=== PATIENT | female | born 1960 | race African-American/Black ===

== ENCOUNTER → 2016-06-09 | Outpatient (CLI) | payer BC, MEDICARE ==
[~2016-06-09] MED LIST: ACETAMINOPHEN-H1 TA2 PO; AMBIEN10 M1 PO; AMBIEN5 MG PO; BUPROPION HYDR100 MG PO; CYMBALTA30 M1 PO; DRISDOL50000 IU PO; HUMULIN 70/30 703 M1 SC; HYDROCODONE BIT1 T11 PO; HYDROMORPHONE2 MG PO; LEVEMIR100 U/ML SC; LEXAPRO20 MG PO; LISINOPRIL20 MG PO; LISINOPRIL40 MG PO; LOPRESSOR50 MG PO; LYRICA75 M1 PO; MAG-OX 400400 MG PO; MAGNESIUM OXID400 MG PO; MAGNESIUM PO; MEDROL DOSEPAK4 MG PO; MEGESTROL ACETAT1 OZ PO; METOPROLOL TART50 M1 PO; METOPROLOL100 MG PO; MORPHINE SULFAT15 MG PO; NORVASC2.5 MG PO; NORVASC5 MG PO; NOVOLOG FLEX100 U/ML SC; OYSTER SHELL CA1 T20 PO; PANTOPRAZOLE SO40 MG PO; PROGRAF1 MG PO; SIMVASTATIN5 MG PO; TRAMADOL HCL50 MG PO; ZITHROMAX250 MG PO; ZOFRAN4 MG PO; ZOLOFT50 MG PO; ZYPREXA2.5 MG PO
== END | disposition home or self-care (01) ==
LOC: US 02:15
DX: Z13.820 Encounter for screening for osteoporosis (principal); E04.2 Nontoxic multinodular goiter

== ENCOUNTER → 2016-10-31 | Outpatient (CLI) | payer BC ==
[2016-10-31 12:32] LABS: HEMOGLOBIN A1c 11.8 % (4.8-5.6)
[2016-10-31 12:50] LABS: THYROID STIM HORMONE (HS) 0.449 uIU/ml (0.358-4.75)
== END | disposition home or self-care (01) ==
LOC: LAB 11:52
PROVIDERS: Internal Medicine Endocrinology, Diabetes & Metabolism
DX: E04.2 Nontoxic multinodular goiter (principal); E11.65 Type 2 diabetes mellitus with hyperglycemia; I10 Essential (primary) hypertension; E55.9 Vitamin D deficiency, unspecified; R20.2 Paresthesia of skin; Z79.4 Long term (current) use of insulin

== ENCOUNTER 2017-02-14 17:10 | Inpatient (IN) | payer BC, MEDICARE ==
[~2017-02-14] VITALS: Ht 163.8 cm; Wt 52.7 kg
--- NOTE | ~2017-02-14 | PR ---
[place], [place] PROGRESS NOTE NAME: KVNG RIVERO [facility] #: [id number] UNIT #: [id number] ROOM: 412 DOCTOR: JARED CHURCHILL MD BIRTHDATE: [birth year] DOS: 02/18/2017 SUBJECTIVE: The patient looks quite sleepy, but does try to wake up ux consultant and answers questions appropriately. She feels better. She wants some regular breakfast this morning. She is able to tolerate food now. OBJECTIVE: VITAL SIGNS: Blood pressure is 137/76, pulse of 80, respirations 16, temperature 98.3. LUNGS: Diminished breath sounds, clear. HEART: Regular. ABDOMEN: Obese, soft, nontender. EXTREMITIES: Without any edema. LABORATORY DATA: Glucose 123, BUN 22, creatinine 3.34, sodium 133, potassium 4.9, chloride 100, bicarbonate 24. WBC count is 14.4, hemoglobin 13.1, hematocrit 39.0. ASSESSMENT AND PLAN: 1. Acute kidney injury, possibly from hypotension resulting in ATN. Increase IV fluid rate and I will discontinue nephrotoxic medicines. The only one she is on lisinopril for right now, we will discontinue it. 2. Type 2 diabetes mellitus, insulin-dependent with hyperosmolar state. Blood sugars are improving. Again, ADA diet started. 3. Diabetic gastroparesis, on Reglan. The patient is no longer having any nausea, any emesis. 4. Liver transplant from history of alcoholic liver disease, on immunosuppressants. 5. Major depression, moderate on medications. Megace was added to improve appetite. Will get a renal consult before the patient is discharged because of continued rise in creatinine, even on the IV fluids. ADDENDUM SUBJECTIVE: The patient became hypotensive. The patient was to walk to the bathroom, she became dizzy and lightheaded and almost fell. Nurses did bring her back to bed. She does not have any complaints of chest pains or palpitations. She is slightly dizzy. OBJECTIVE: VITAL SIGNS: Her blood pressure was 100/50, pulse of 76, respirations 14. LUNGS: Clear. HEART: Regular. ASSESSMENT AND PLAN: Dizziness and near syncope, most likely from hypotension. I had already made arrangements to increase the IV fluids. They did speak to the nursing staff to give wide open IV fluids 1 bag and then reduce the IV rate to 100 mL an hour. She already has ATN resulting from this hypotension and the lisinopril will be discontinued for right now. [place], [place] PROGRESS NOTE NAME: KVNG RIVERO UNIT #: [id number] ROOM: [facility] DOCTOR: JARED CHURCHILL MD BIRTHDATE: [birth year] JARED CHURCHILL MD CM:PNTRANS [phone] JARED CHURCHILL MD 02/20/17 0629 interface
--- NOTE | ~2017-02-14 | PR ---
[place], [place] PROGRESS NOTE NAME: KVNG RVIERO [facility] #: [id number] UNIT #: [id number] ROOM: 412 DOCTOR: JARED CHURCHILL MD BIRTHDATE: [birth year] DOS: 02/16/2017 SUBJECTIVE: The patient has no complaints this morning other than some minimal abdominal discomfort. OBJECTIVE: VITAL SIGNS: Graphic trend shows blood pressure 108/66, pulse is 60s, respirations 16, temperature 97.9. LUNGS: Clear. HEART: Regular. ABDOMEN: Soft, nontender. EXTREMITIES: Without any edema. ASSESSMENT AND PLAN: 1. Type 2 diabetes mellitus, insulin-dependent, poorly controlled with hyperosmolar state, which is resolved now. 2. Major depression, moderate, recurrent. Appetite is extremely poor. Consider to add Remeron. 3. Abdominal pain most likely from acute gastritis. She underwent an endoscopy in July of this year by Dr. Strauss, which showed benign esophageal stricture and gastritis. Dilation was performed. We will ask Dr. Strauss for an opinion again, because the patient is not eating much food. JARED CHURCHILL MD CM:PNTRANS [phone] 1 JARED CHURCHILL MD 02/17/17 0131 interface
--- NOTE | ~2017-02-14 | WRIGHTHP ---
[place], [place] PATIENT HISTORY AND PHYSICAL EXAM NAME: KVNG RIVERO [facility] #: [id number] UNIT #: [id number] ROOM: [facility] DOCTOR: KEE LUCIANO MD BIRTHDATE: [birth year] DOS: 02/14/2017 HISTORY OF PRESENT ILLNESS: The patient is a 57-year-old female with a past medical history of: 1. Uncontrolled type 2 diabetes mellitus. The patient has a history of chest pain with negative stress test and cardiac stress test in the past. 2. Benign essential hypertension. 3. History of esophageal stricture status post dilatation in the past. 4. History of alcoholic liver cirrhosis and liver transplant. 5. Chronic lower back pains. 6. Major depression, recurrent, moderate. 7. Chronic primary insomnia. 8. Vitamin D deficiency. The patient presented to the [facility] Emergency Department with extremely elevated blood sugars above 800. The patient said she is not feeling well for about 10 days and she chronically has some nausea and diarrhea, but worse for about a day and a half. The patient's hemoglobin A1c was found to be 14.5 and blood sugar at 1015 along with elevated BUN and creatinine. The patient was recommended for admission for the management to the ICU. The patient was found to be hyponatremic with sodium of 119 and hypokalemic with potassium 3.1 with elevation of troponin level 2.131. After admission, the patient was treated with hydration with normal saline and later on with hypertonic saline, extra potassium supplements, intravenous insulin and her blood sugars have improved and ranging between 114-157 now. The patient is starting to feel much better, but she is still complaining of some nausea and significant diarrhea. No complaints of chest pains. No nausea or diaphoresis. No other GI or urinary symptoms. REVIEW OF SYSTEMS: GASTROINTESTINAL: Some nausea and acute diarrhea. CARDIOVASCULAR: No chest pains or palpitations. LUNGS: No increased shortness of breath or wheezing. FAMILY HISTORY: Noncontributory. HOME MEDICATIONS: The patient takes lisinopril, insulin, mirtazapine, pravastatin, metoprolol, tacrolimus, Xanax, oxycodone and zolpidem. ALLERGIES: No known drug allergies. PHYSICAL EXAMINATION: GENERAL: Alert and oriented x 3, weak looking, but in no visible distress. VITAL SIGNS: Blood pressure 105/66, heart rate 88 beats per minute, breathing 15 times per minute, temperature of 98.2 degrees Fahrenheit. HEENT AND NECK: Extraocular movements are intact. Sclerae are anicteric. Oral mucosa is moist and clean. No obvious facial weakness. Neck is supple without any lymphadenopathy. No thyromegaly. No JVD. No carotid arterial bruits. LUNGS: Clear to auscultation. No wheezing. No rhonchi. CARDIOVASCULAR SYSTEM: Heart rate is regular in rate and rhythm. S1 and S2 [place], [place] PATIENT HISTORY AND PHYSICAL EXAM NAME: KVNG RIVERO UNIT #: [id number] ROOM: [facility] DOCTOR: KEE LUCIANO MD BIRTHDATE: [birth year] normally audible. No significant murmur or any other abnormal cardiac sounds. ABDOMEN: Soft, nontender. No obvious organomegaly. Bowel sounds are present. No obvious herniation. EXTREMITIES: Without significant cyanosis or edema. Warm to touch. CENTRAL NERVOUS SYSTEM: Alert and oriented x 3. Cranial nerves II-XII are intact. Speech is normal. The patient is able to move all extremities. Normal muscle strength. Deep tendon reflexes are equal on both sides. Plantars were downgoing. IMPRESSION: 1. The patient is very poor compliance with treatment and followup. 2. Acute and severe hyperglycemia, treated with IV insulin and improved. 3. Acute dehydration from severe hyperglycemia, improved with treatment. 4. Hypokalemia from diarrhea, treated with extra potassium supplements. 5. Severe hyponatremia, treated with normal saline. The patient's sodium level has improved now. She is on hypertonic saline. 6. Uncontrolled type 2 diabetes mellitus with severe hyperglycemia from noncompliance with treatment. 7. Acute over chronic kidney disease, improved with hydration. The patient with acute tubular necrosis. The patient's BUN and creatinine has improved with hydration from 2.19 admission and is now down 1.54. 8. Uncontrolled type 2 diabetes mellitus from noncompliance with diet and treatment. The patient's hemoglobin A1c is 14.5. 9. Acute nausea and diarrhea from uncertain etiology. We will watch and follow closely and hydrate the patient, also replace electrolytes and check her stool for C. diff and cultures. KEE LUCIANO MD CM:HISPHYS:PATIENT HISTORY AND PHYSICAL EXAMINATION [phone] [id number] KEE LUCIANO MD 02/15/17 1852 interface
--- NOTE | ~2017-02-14 | PR ---
[place], [place] PROGRESS NOTE NAME: KVNG RIVERO [facility] #: [id number] UNIT #: [id number] ROOM: 412 DOCTOR: JARED CHURCHILL MD BIRTHDATE: [birth year] DOS: SUBJECTIVE: She is curled up in her bed this morning, states that she is too weak to get out of bed and walk to the bathroom or walk around in the hallways. OBJECTIVE: VITAL SIGNS: Blood pressure is 104/60, pulse of 75, respirations 18, temperature 97.5. LUNGS: Diminished breath sounds. HEART: Regular. ABDOMEN: Soft. EXTREMITIES: Without any edema. Endoscopy was done yesterday, which showed significant diabetic gastroparesis for which Reglan was started. LABORATORY DATA: This morning shows glucose of 174, BUN 19, creatinine 2.77, sodium 138, potassium 6.3, chloride 103, bicarbonate 20. Urine culture shows no bacterial growth. White blood cell count 10.4, hemoglobin 12.8, platelets 127. ASSESSMENT AND PLAN: 1. Hyperosmolar state, which is better with the blood sugars below 200s. 2. Adult failure to thrive. I suggested the patient go to rehab, but she refused, but I will ask PT, OT and social service to evaluate her for possible placement. 3. Gastroparesis diabetic, on Reglan. 4. Major depression, moderate, recurrent. Already on multiple medications. We will also add Megace to improve the appetite. JARED CHURCHILL MD CM:PNTRANS 3 1229 JARED CHURCHILL MD 02/17/17 1228 interface
--- NOTE | ~2017-02-14 | PR ---
[place], [place] PROGRESS NOTE NAME: KVNG RIVERO [facility] #: [id number] UNIT #: [id number] ROOM: 412 DOCTOR: CORINNE GARCIA MD BIRTHDATE: [birth year] DOS: 02/19/2017 SUBJECTIVE: The patient was seen at her bedside today, 02/19/2017 for followup of her elevated troponin level. She is a 57-year-old woman with a history of cirrhosis and liver transplantation with post-transplant type 2 diabetes mellitus and hypertension. She presented to the hospital on this occasion with severe hyperglycemia and poorly controlled diabetes. She was noted to have an acute exacerbation of chronic renal insufficiency. Initially, her creatinine improved with fluids, but then began to rise again. Creatinine levels are now 3.38 as of this morning. The patient did undergo upper endoscopy for dysphagia and was found to have gastritis and esophageal ulcers. A cardiac assessment in April 2016 showed normal left ventricular systolic function and no evidence for ischemia. During the current hospitalization, her troponin was elevated at 0.131 on admission, subsequently it has fallen to 0.076. Treatment of her gastritis has improved her chest discomfort. PHYSICAL EXAMINATION: VITAL SIGNS: Today, her pulse is 110 and regular, blood pressure is 111/75. She is afebrile. NECK: Supple. She has no jugular distention. Carotids are full without bruits. LUNGS: Respirations are unlabored. Her chest is clear to auscultation and percussion. She has no presacral edema. HEART: Has a regular rhythm with a soft fourth heart sound, but no third heart sound. ABDOMEN: Soft and normoactive. EXTREMITIES: Showed no edema. LABORATORY DATA: Her hemoglobin is 13.1 with a white count of 14,400 and platelet count 135,000. Sodium is 132, potassium 5.1, BUN 25 and creatinine 3.38. Her monitor shows sinus tachycardia. IMPRESSION: 1. Atypical chest pain, most likely due to gastritis and esophageal ulcerations. 2. Acute on chronic renal insufficiency. 3. History of alcoholic cirrhosis, status post liver transplant. 4. History of hypertension. 5. Tachycardia, possibly due to beta adrian withdrawal. PLAN: I will reinstitute a low dose of beta adrian and continue her monitor. She is being evaluated by Nephrology as well. Her troponin levels have fallen and I believe that her myocardial injury was due to demand ischemia rather than an acute coronary event. We will continue to follow her intermittently and we thank Dr. Pepper for asking our advice regarding her care. [place], [place] PROGRESS NOTE NAME: KVNG RIVERO [place] UNIT #: [id number] ROOM: [facility] DOCTOR: CORINNE GARCIA MD BIRTHDATE: [birth year] CORINNE GARCIA MD CM:PNTRANS [phone] 50 CORINNE GARCIA MD 02/19/17 2350 interface
--- NOTE | ~2017-02-14 | PR ---
[place], [place] PROGRESS NOTE NAME: KVNG RIVERO [facility] #: [id number] UNIT #: [id number] ROOM: 412 DOCTOR: JARED CHURCHILL MD BIRTHDATE: [birth year] DOS: SUBJECTIVE: The patient is feeling good, has no complaints today. I appreciate Dr. Vidal's input. OBJECTIVE: VITAL SIGNS: Blood pressure is 111/75, pulse of 109, respirations 18, temperature 98.2. LUNGS: Clear. HEART: Regular. ABDOMEN: Soft. EXTREMITIES: Without any edema. ASSESSMENT AND PLAN: 1. Acute kidney injury from acute tubular necrosis from hypotension. Blood pressure medicines are on hold. Blood pressures still on the low side. Basic metabolic panel pending. 2. Type 2 diabetes mellitus with hyperosmolar state. Blood sugar is controlled. The patient is starting to eat better. The labs do look okay. I plan to discharge her to home today. 3. Chronic elevation of troponin, most likely from renal insufficiency. JARED CHURCHILL MD CM:PNTRANS 4 19 JARED CHURCHILL MD 02/19/171918 interface
--- NOTE | ~2017-02-14 | PR ---
[place], [place] PROGRESS NOTE NAME: KVNG RIVERO [facility] #: [id number] UNIT #: [id number] ROOM: 412 DOCTOR: CORINNE GARCIA MD BIRTHDATE: [birth year] DOS: 02/17/2017 SUBJECTIVE: The patient was seen at her bedside today 02/17/2017 for evaluation of an elevated troponin level. She is a 57-year-old woman with a history of alcoholic liver cirrhosis and liver transplant along with type 2 diabetes mellitus and hypertension. She presented to the hospital on this occasion with hyperglycemia and sugar over 800. Her hemoglobin A1c was 14.5. She was noted to have acute on chronic renal failure. Baseline creatinine appears to be about 1.5, but on admission, she was 2.09 and it has risen to 3.12 today. Her troponin level was elevated at 0.131 on admission and upon repeat it was 0.115. It has been mildly elevated in this range in the past, but not recently. She has undergone cardiac evaluation including echocardiography and stress testing in April 2016. Ejection fraction on her stress test, which was done 05/19/2016 was 83%. She had no evidence for ischemia and the study was felt to be low risk. During this hospitalization, she has complained of dysphagia. An upper endoscopy done by Dr. Strauss on 02/16/2017 showed gastritis with esophageal ulcers. PHYSICAL EXAMINATION: VITAL SIGNS: Today, her pulse is 69 and regular, blood pressure is 103/71. She is afebrile. NECK: Supple. She has no jugular distention. Carotids are full. LUNGS: Respirations are unlabored. Her chest is clear. HEART: Has a regular rhythm with a soft S4 gallop, but no S3. ABDOMEN: Soft and normoactive. EXTREMITIES: Showed no edema. LABORATORY DATA: Review of the monitor shows sinus rhythm. IMPRESSION: 1. Atypical chest pain. Upper endoscopy does show gastritis and esophageal ulcerations. 2. Acute on chronic renal insufficiency. 3. History of alcoholic cirrhosis, status post liver transplant. PLAN: It is most likely that her troponin elevation is related to her renal insufficiency rather than due to an acute coronary event. Literature would suggest that this does predict a more serious prognosis for her other illnesses, but this is not truly a primary cardiac event. I will repeat a troponin level in the morning to help confirm this. For now, supportive care is all that is indicated from a cardiac standpoint. We will continue to follow her intermittently and we thank Dr. Pepper for asking our advice regarding her care. [place], [place] PROGRESS NOTE NAME: KVNG RIVERO [place] UNIT #: [id number] ROOM: [facility] DOCTOR: CORINNE GARCIA MD BIRTHDATE: [birth year] CORINNE GARCIA MD CM:PNTRANS [id number] CORINNE GARCIA MD 02/18/17 1539 interface
--- NOTE | ~2017-02-14 | O ---
[place], [place] OPERATIVE NOTE NAME: KVNG RIVERO UNIT #: [id number] ROOM: 412 DOCTOR: TIMOTEO DIEZPATRICIA BIRTHDATE: [birth year] DOS: GASTROENDOSCOPIC REPORT INDICATION: The patient has presented with nausea, dysphagia, vomiting. The patient has had frequent bowel movements. The patient's glucose was greater than 1000 and hemoglobin A1c of 14.5. She was managed for hyperglycemia and her latest blood sugar improved to 128, creatinine improved to 1.94 and sodium corrected to 133. Urine culture, no bacteria. CBC differential, stable white blood cell of 8, H and H of 11 and 34. She was severely presenting with sodium of 119 with pseudohyponatremia. PAST MEDICAL HISTORY: Associated with diabetes mellitus, hypertension, cirrhotic liver, shortness of breath chronically, chronic lower back pain as well. Major depression. PAST SURGICAL HISTORY: Cholecystectomy, , liver transplant 20 years ago. SOCIAL HISTORY: Smoker, nonalcohol consumer. FAMILY HISTORY: Noncontributory. ALLERGIES: No known medication. MEDICATIONS: List reviewed. PROCEDURE: Today's procedure part of investigation is panendoscopy plus aspiration of 1000 mL retained fluid in the gastric pouch plus biopsy of the antrum plus photographic series of diffuse esophageal ulcerations and reflux ulcers. PREMEDICATION: Versed and Diprivan. SCOPE: Olympus forward-viewing gastroscope Q10 video. REPORT: After putting the patient in the left lateral position and after application of lubricant to the scope, the scope was introduced. Thereafter, under direct visualization, I advanced through the length of the esophagus, which is expressing diffuse ulceration secondary to reflux. Gastric pouch was entered. 1000 mL gastric juices were suctioned out. This is secondary to diabetic gastroparesis. Duodenal patency was assured, antral biopsy obtained, gastric pouch emptied. The patient extubated and tolerated procedure well. IMPRESSION: Diffuse esophageal ulceration secondary to reflux, retention of greater than 1000 mL of gastric juices status post suctioning. PLAN AND DISCUSSION: Protonix 40 mg IV b.i.d., Reglan 10 mg b.i.d. IV, Carafate 1 gram q. 6 hours, slurry to be sipped at the bedside. We are going to keep her n.p.o. tonight until her medication takes over and will try clear liquid [place], [place] OPERATIVE NOTE NAME: KVNG RIVERO UNIT #: [id number] ROOM: 412 DOCTOR: PATRICIA MAHMOOD MD BIRTHDATE: [birth year] tomorrow and clinical reassessment. FINAL IMPRESSION: Gastroparesis secondary to diabetic gastroparesis and noncompliant patient. Thank you very much indeed. PATRICIA MAHMOOD MD CM:OPRECORD:OPERATIVE NOTE [id number] PATRICIA MAHMOOD MD 02/17/17 0005 interface
--- NOTE | ~2017-02-14 | DS ---
[place], [place] DISCHARGE SUMMARY NAME: KVNG RIVERO UNIT #: [id number] ROOM: 412 DOCTOR: JARED CHURCHILL MD BIRTHDATE: [birth year] DOS: HOSPITAL COURSE: This patient is very well known to us. The patient had routine blood work ordered by Dr. Hawkins, her medical technologist prn. Her blood sugar was in the above , so the patient was called to come into the Emergency Room. She was evaluated and was admitted with hyperosmolar state. Please see H and P for Dr. Pepper for details also. The patient was admitted to ICU, was managed by him. The patient's blood sugars continued to improve, was later [place] [facility] The patient was found to be hypotensive with evidence of acute kidney injury and antihypertensives were discontinued, begin IV hydration. Potassium supplementation was discontinued. A consultation with Dr. Noe was obtained. The patient also developed some abdominal pain. Dr. Strauss was consulted, endoscopy was performed and showed significant gastroparesis and a lot of residual gastric juices about 1000 mL was noted with evidence of gastritis. This was all suctioned out. The patient has had chronic elevation in troponin, possibly from the renal insufficiency. Cardiology consultation was obtained with Dr. Hines. No further workup was ordered because she had recent stress test and echocardiogram in April of last year, which were within normal limits. The patient is stable this morning, her appetite is improved. I have ordered a basic metabolic on this morning. I do not have the results yet. If that shows improvement in the kidney functions, the plan is to discharge her to home today. DISCHARGE MEDICATIONS: Will be Megace 400 mg twice a day, Reglan 5 b.i.d., Protonix 40 daily, Prograf 3 grams twice a day, vitamin D 50,000 units once a week, Ambien 5 at bedtime p.r.n., simvastatin 5 daily, oxycodone 5 b.i.d., duloxetine 30 daily, Remeron 30 at bedtime. Metoprolol, amlodipine, lisinopril, Elavil have been discontinued, will be restarted at a later date. [place], [place] DISCHARGE SUMMARY NAME: KVNG RIVERO UNIT #: [id number] ROOM: 412 DOCTOR: JARED CHURCHILL MD BIRTHDATE: [birth year] JARED CHURCHILL MD CM:EARLE 7 7 JARED CHURCHILL MD 02/19/17 09 interface
[2017-02-14 13:50] LABS: CREATININE 2.09 mg/dL (0.55-1.02)
[2017-02-14 13:55] LABS: THYROID STIM HORMONE (HS) 1.1 uIU/ml (0.358-4.75)
[2017-02-14 14:34] LABS: VITAMIN D, 25-HYDROXY 18.4 ng/mL (30-100)
[2017-02-14 17:17] VITALS: BP 129/73
[2017-02-14 18:08] LABS: BASO % 0.4 % (0.0-1.0); EOS # 0.1 10*3/uL (0.0-0.4); EOS % 1.6 % (1.0-4.0); HEMOGLOBIN 11.4 g/dl (12.0-16.0); LYMPH # 1.1 10*3/uL (1.3-4.4); LYMPH % 19.6 % (27.0-41.0); MEAN CELL VOLUME 88.2 fl (81.0-99.0); MEAN CORPUSCULAR HGB 30.5 pg (27.0-31.0); MEAN CORPUSCULAR HGB CONC 34.5 g/dl (33.0-37.0); MONO # 0.4 10*3/uL (0.1-1.0); MONO % 6.1 % (3.0-9.0); NEUT # 4.1 10*3/uL (2.3-7.9); NEUT % 71.8 % (47.0-73.0); PLATELET COUNT AUTOMATED 99 10*3/uL (130-400); RED BLOOD COUNT 3.74 10*6/uL (4.10-5.10); RED CELL DISTRI WIDTH 12.3 % (0-14.5); WHITE BLOOD COUNT 5.7 10*3/uL (4.8-10.8)
[2017-02-14 18:15] LABS: BILIRUBIN NEGATIVE (NEGATIVE); BLOOD TRACE-LYSED (NEGATIVE); CLARITY CLEAR (CLEAR); COLOR YELLOW (YELLOW); GLUCOSE 3+ (NEGATIVE); KETONE NEGATIVE (NEGATIVE); LEUKO ESTERASE NEGATIVE (NEGATIVE); NITRITE NEGATIVE (NEGATIVE); PH 5.5 (5.0-9.0); SPECIFIC GRAVITY <= 1.005 (1.005-1.030); UROBILINOGEN 0.2 E.U./dl (0.2-1.0)
[2017-02-14 18:26] LABS: ABG BASE EXCESS 3.7 mmol/L (-2.0-2.0); ABG HCO3 27.5 mmol/l (22-26); ABG O2 SATURATION 98.3 % (95-97); ARTERIAL BLOOD GAS PCO2 41.3 mmHg (35-45); ARTERIAL BLOOD GAS PH 7.442 (7.35-7.45); ARTERIAL BLOOD GAS PO2 97.4 mmHg (80-90)
[2017-02-14 18:27] LABS: ALBUMIN 2.3 gm/dl (3.1-4.5); CREATININE 2.19 mg/dL (0.55-1.02); POTASSIUM 3.1 mmol/L (3.5-5.1); TOTAL PROTEIN 5.8 gm/dL (6.4-8.2)
[2017-02-14 18:32] LABS: TROPONIN I 0.131 ng/ml (<0.045)
[2017-02-14 18:45] LABS: BACTERIA 2+
[2017-02-14 19:12] VITALS: BP 183/99
[2017-02-14 20:07] VITALS: BP 160/97
[2017-02-14 22:16] LABS: CREATININE 1.92 mg/dL (0.55-1.02); POTASSIUM 3.8 mmol/L (3.5-5.1)
[2017-02-15] VITALS: BP 142/80
[2017-02-15 04:00] VITALS: BP 122/71
[2017-02-15 06:39] LABS: CREATININE 1.54 mg/dL (0.55-1.02); POTASSIUM 3.2 mmol/L (3.5-5.1)
[2017-02-15 08:00] VITALS: BP 101/62
[2017-02-15] MEDS ORDERED: CYMBALTA30 MG PO (08:57)
[2017-02-15] MEDS ORDERED: OXYCODONE HCL5 M1 PO (08:57)
[2017-02-15] MEDS ORDERED: REMERON30 M1 PO (08:58)
[2017-02-15] MEDS ORDERED: AMITRIPTYLINE10 MG PO (08:58)
[2017-02-15 12:00] VITALS: BP 105/66
[2017-02-15 12:08] LABS: CREATININE 1.72 mg/dL (0.55-1.02); POTASSIUM 3.8 mmol/L (3.5-5.1)
[2017-02-15 16:00] VITALS: BP 98/61
[2017-02-15 18:24] LABS: CREATININE 1.93 mg/dL (0.55-1.02); POTASSIUM 4.3 mmol/L (3.5-5.1)
[2017-02-15 20:00] VITALS: BP 112/70
[2017-02-16] VITALS (8 sets, daily range): BP systolic 91–147; BP diastolic 58–84
[2017-02-16 04:17] LABS: BASO % 0.5 % (0.0-1.0); EOS # 0.5 10*3/uL (0.0-0.4); HEMATOCRIT 31.4 % (37.0-47.0); LYMPH # 3.2 10*3/uL (1.3-4.4); LYMPH % 40.4 % (27.0-41.0); MEAN CELL VOLUME 87.5 fl (81.0-99.0); MEAN CORPUSCULAR HGB 30.6 pg (27.0-31.0); MEAN PLATELET VOLUME 11.7 fl (9.6-12.3); MONO # 0.6 10*3/uL (0.1-1.0); MONO % 7.2 % (3.0-9.0); NEUT # 3.7 10*3/uL (2.3-7.9); NEUT % 45.8 % (47.0-73.0); PLATELET COUNT AUTOMATED 107 10*3/uL (130-400); RED BLOOD COUNT 3.59 10*6/uL (4.10-5.10); RED CELL DISTRI WIDTH 12.8 % (0-14.5)
[2017-02-16 04:32] LABS: CREATININE 1.94 mg/dL (0.55-1.02); POTASSIUM 4.7 mmol/L (3.5-5.1)
[2017-02-17] VITALS: BP 90/54
[2017-02-17 04:47] VITALS: BP 104/60
[2017-02-17 05:47] LABS: CREATININE 2.77 mg/dL (0.55-1.02)
[2017-02-17 05:49] LABS: POTASSIUM 6.3 mmol/L (3.5-5.1)
[2017-02-17 06:34] LABS: HEMATOCRIT 36.5 % (37.0-47.0); HEMOGLOBIN 12.8 g/dl (12.0-16.0); MEAN CELL VOLUME 87.3 fl (81.0-99.0); MEAN CORPUSCULAR HGB 30.6 pg (27.0-31.0); MEAN CORPUSCULAR HGB CONC 35.1 g/dl (33.0-37.0); MEAN PLATELET VOLUME 13.8 fl (9.6-12.3); NUCLEATED RED BLOOD CELL 0.1 10*3/uL (0.0-0.0); NUCLEATED RED BLOOD CELL 1.2 % (0.0-0.0); PLATELET COUNT AUTOMATED 127 10*3/uL (130-400); RED BLOOD COUNT 4.18 10*6/uL (4.10-5.10); RED CELL DISTRI WIDTH 12.8 % (0-14.5); WHITE BLOOD COUNT 10.4 10*3/uL (4.8-10.8)
[2017-02-17 07:09] LABS: BASOPHILS 1 % (0-1); PLATELET SUFFICIENCY LOW (NORMAL); TOTAL CELLS COUNTED 100 #CELLS
[2017-02-17 08:00] VITALS: BP 96/46
[2017-02-17 10:17] LABS: CREATININE 3.12 mg/dL (0.55-1.02)
[2017-02-17 12:00] VITALS: BP 97/68
[2017-02-17 16:00] VITALS: BP 103/71
[2017-02-17 20:00] VITALS: BP 97/60
[2017-02-18] VITALS: BP 137/76
[2017-02-18 05:59] LABS: BASO % 0.2 % (0.0-1.0); EOS # 0.1 10*3/uL (0.0-0.4); EOS % 0.8 % (1.0-4.0); HEMOGLOBIN 13.1 g/dl (12.0-16.0); LYMPH # 3.1 10*3/uL (1.3-4.4); LYMPH % 21.7 % (27.0-41.0); MEAN CELL VOLUME 87.4 fl (81.0-99.0); MEAN CORPUSCULAR HGB 29.4 pg (27.0-31.0); MEAN CORPUSCULAR HGB CONC 33.6 g/dl (33.0-37.0); MEAN PLATELET VOLUME 11.1 fl (9.6-12.3); MONO # 1.2 10*3/uL (0.1-1.0); MONO % 8.6 % (3.0-9.0); NEUT # 9.8 10*3/uL (2.3-7.9); NEUT % 68.3 % (47.0-73.0); PLATELET COUNT AUTOMATED 135 10*3/uL (130-400); RED BLOOD COUNT 4.46 10*6/uL (4.10-5.10); RED CELL DISTRI WIDTH 13.2 % (0-14.5); WHITE BLOOD COUNT 14.4 10*3/uL (4.8-10.8)
[2017-02-18 06:03] LABS: CREATININE 3.34 mg/dL (0.55-1.02); POTASSIUM 4.9 mmol/L (3.5-5.1)
[2017-02-18 06:07] LABS: TROPONIN I 0.076 ng/ml (<0.045)
[2017-02-18 08:20] VITALS: BP 140/90
[2017-02-18 12:00] VITALS: BP 122/84
[2017-02-18 16:00] VITALS: BP 117/74
[2017-02-18 20:00] VITALS: BP 127/79
[2017-02-19] VITALS: BP 126/74
[2017-02-19 08:00] VITALS: BP 111/75
[2017-02-19] MEDS ORDERED: PROTONIX40 MG PO (08:13)
[2017-02-19] MEDS ORDERED: REGLAN5 MG PO (08:13)
[2017-02-19] MEDS ORDERED: MEGACE 40400 MG/10 PO (08:28)
[2017-02-19 08:54] LABS: CREATININE 3.38 mg/dL (0.55-1.02); POTASSIUM 5.1 mmol/L (3.5-5.1)
== END 2017-02-19 12:20 | disposition home or self-care (01) | DRG 637 ==
LOC: EDSTATUS 17:10 → ED 17:11 → ICCU 18:49 → EDHOLD 18:49 → ICCU 19:51 → 4E 02-15 20:32
PROVIDERS: Internal Medicine; Internal Medicine Endocrinology, Diabetes & Metabolism; Internal Medicine Nephrology; Physician Assistant; ADMIT Internal Medicine
PROC: 0DB68ZX Excision of Stomach, Via Natural or Artificial Opening Endoscopic, Diagnostic (ICD-10-PCS; principal; 2017-02-16)
DX: E11.00 Type 2 diabetes mellitus with hyperosmolarity without nonketotic hyperglycemic-hyperosmolar coma (NKHHC) (principal); N17.0 Acute kidney failure with tubular necrosis; E87.2 Acidosis; I95.9 Hypotension, unspecified; Z94.4 Liver transplant status; E11.649 Type 2 diabetes mellitus with hypoglycemia without coma; E11.22 Type 2 diabetes mellitus with diabetic chronic kidney disease; K25.9 Gastric ulcer, unspecified as acute or chronic, without hemorrhage or perforation; E87.1 Hypo-osmolality and hyponatremia; F33.8 Other recurrent depressive disorders; K22.10 Ulcer of esophagus without bleeding; K31.84 Gastroparesis; E11.43 Type 2 diabetes mellitus with diabetic autonomic (poly)neuropathy; Z90.49 Acquired absence of other specified parts of digestive tract; G93.2 Benign intracranial hypertension; G89.29 Other chronic pain; M54.5 Low back pain; F32.9 Major depressive disorder, single episode, unspecified; E86.0 Dehydration; E87.6 Hypokalemia; Z91.19 Patient's noncompliance with other medical treatment and regimen; E11.65 Type 2 diabetes mellitus with hyperglycemia; M75.100 Unspecified rotator cuff tear or rupture of unspecified shoulder, not specified as traumatic; J40 Bronchitis, not specified as acute or chronic; I12.9 Hypertensive chronic kidney disease with stage 1 through stage 4 chronic kidney disease, or unspecified chronic kidney disease; E78.5 Hyperlipidemia, unspecified; Z80.9 Family history of malignant neoplasm, unspecified; N18.3 Chronic kidney disease, stage 3 (moderate); E86.1 Hypovolemia; R62.7 Adult failure to thrive; K31.89 Other diseases of stomach and duodenum; Z79.4 Long term (current) use of insulin; K29.00 Acute gastritis without bleeding

== ENCOUNTER 2017-02-20 22:02 | Inpatient (IN) | payer BC, MEDICARE ==
[~2017-02-20] VITALS: Ht 163.8 cm; Wt 65.5 kg
--- NOTE | ~2017-02-20 | PR ---
[place], [place] PROGRESS NOTE [id number] UNIT #: [id number] ROOM: 525 DOCTOR: KEE LUCIANO MD BIRTHDATE: [birth year] DOS: 02/23/2017 SUBJECTIVE: The patient complaining of weakness and some constipation. OBJECTIVE: VITAL SIGNS: Blood pressure 142/76, heart rate 93 beats per minute, breathing 18 times per minute, temperature 98 degrees Fahrenheit. GENERAL APPEARANCE: The patient is alert and oriented x 3, in no visible distress. HEENT AND NECK: Exam within normal limits. CARDIOVASCULAR SYSTEM: Heart rate is regular in rate and rhythm. S1 and S2 normally audible. LUNGS: Clear to auscultation. ABDOMEN: Soft, nontender. No obvious organomegaly. Bowel sounds are present. EXTREMITIES: Without significant cyanosis or edema. NEUROLOGIC: Generalized weakness. IMPRESSION: 1. The patient has acute renal failure. BUN and creatinine 32 and 3.06. The patient was recommended to go to transplant center in ____ to get treated for acute renal failure, which is thought to be secondary to her antirejection medication, tacrolimus, but the patient refused. Tacrolimus level was found to be elevated and the dosage has been cut back by the corrosion engineer. 2. The patient on hydration with IV fluids for acute kidney injury from tubular necrosis. 3. Type 2 diabetes mellitus, insulin requiring, uncontrolled. Blood sugars are being monitored and treated. 4. Adult failure to thrive. The patient to work with Physical Therapy. 5. History of liver transplant and chronic rejection, followed at [facility]. KEE LUCIANO MD CM:PNTRANS 23 50 KEE LUCIANO MD 02/23/172250 interface
--- NOTE | ~2017-02-20 | PR ---
[place], [place] [facility]GRESS [id number] UN[facility] #: [id number] ROOM: 525 DOCTOR: JARED CHURCHILL MD BIRTHDATE: [birth year] DOS: SUBJECTIVE: The patient is doing fairly well, does not have any new complaints. She did have a good breakfast, walked with physical therapy. OBJECTIVE: VITAL SIGNS: Graphic trend shows a pressure 140/90, pulse of 91, respirations 20, temperature 98.3. LUNGS: Diminished breath sounds. No wheezes, rales or rhonchi heard. HEART: Regular. ABDOMEN: Obese, soft, nontender. EXTREMITIES: Without any edema. ASSESSMENT AND PLAN: 1. Acute kidney injury from hypotension and acute tubular necrosis. Kidney functions have normalized. She has not had any blood work since 7. Since [facility], blood will be drawn there today. 2. History of type 2 diabetes mellitus, insulin-dependent, poorly controlled. Blood sugars are stable here. 3. Adult failure to thrive for placement to [facility] for therapy. 4. History of liver transplant. Medications readjusted and repeat Prograf level was ordered to make sure that the current dosage is the right dose for the patient. The patient is stable. [facility] is accepted and insurance had certified, so we will discharge today. JARED CHURCHILL MD CM:PNTRANS [id number] JARED CHURCHILL MD 02/26/172203 interface
--- NOTE | ~2017-02-20 | PR ---
[place], [place] PROGRESS NOTE NAME: [facility] [id number] UNIT #: [id number] ROOM: 525 DOCTOR: KEE LUCIANO MD BIRTHDATE: [birth year] DOS: 02/24/2017 SUBJECTIVE: The patient is feeling much better. OBJECTIVE: VITAL SIGNS: Blood pressure 110/68, heart rate 100 beats per minute, breathing 18 times per minute, temperature 98.3 degrees Fahrenheit. GENERAL APPEARANCE: The patient is alert and oriented x 3, in no visible distress. HEENT AND NECK: Exam within normal limits. CARDIOVASCULAR SYSTEM: Heart rate is regular in rate and rhythm. S1 and S2 normally audible. LUNGS: Clear to auscultation. ABDOMEN: Soft, nontender. No obvious organomegaly. Bowel sounds are present. EXTREMITIES: Without significant cyanosis or edema. IMPRESSION: 1. The patient with acute over chronic kidney failure considered to be secondary to tacrolimus. The antirejection medications was held back for 1 day because the levels were high and Nephrology are following. Kidney function is better today. Creatinine has improved to 2.87. The patient refused to be transferred to a transplant center which was recommended by Nephrology. 2. Type 2 diabetes mellitus, insulin requiring with uncontrolled blood sugars at home, apparently due to noncompliance. Blood sugars at the hospital are staying much better, ranging from almost 70-150 mostly. 3. History of liver transplant and chronic rejection, followed at [facility] transplant Center. KEE LUCIANO MD CM:PNTRANS [id number] KEE LUCIANO MD 02/24/172227 interface
--- NOTE | ~2017-02-20 | PR ---
[place], [place] PROGRESS NOTE NAME: KVNG RIVERO [facility] #: [id number] UNIT #: [id number] ROOM: 525 DOCTOR: MUSTAPHA DIEZ,KEE Regalado BIRTHDATE: [birth year] DOS: 02/25/2017 SUBJECTIVE: The patient is feeling better. Swelling in her legs is improving. Kidney function is also improving. The patient's acute over chronic kidney disease is improving with treatment. The patient with liver transplant, on antirejection medicine tacrolimus, which dose has been decreased. Anemia of chronic disease. Benign essential hypertension, with controlled blood pressures with treatment. Type 2 diabetes mellitus. Blood sugars being monitored and controlled. The patient has uncontrolled diabetes at home from poor compliance with diet. KEE LUCIANO MD CM:HARPREET [id number] KEE LUCIANO MD 02/25/172226 interface
--- NOTE | ~2017-02-20 | PR ---
[place], [place] PROGRESS NOTE [id number] UNIT #: [id number] ROOM: 525 DOCTOR: JARED CHURCHILL MD BIRTHDATE: [birth year] DOS: SUBJECTIVE: The patient has no complaints this morning. OBJECTIVE: VITAL SIGNS: Graphic trend shows blood pressure 116/64, pulse of 70, respirations 18, afebrile. LUNGS: Clear. HEART: Regular. ABDOMEN: Obese, soft, nontender. EXTREMITIES: Without any edema. LABORATORY DATA: Shows WBC count of 6.4, hemoglobin 10.7, hematocrit 31.6. Comprehensive: Glucose 78, BUN 37, creatinine 2.84. Electrolytes were normal. SGOT 94, SGPT 82, protein 5.1, bilirubin 0.6, alkaline phosphatase 486. ASSESSMENT AND PLAN: 1. Acute kidney injury from acute tubular necrosis from hypotension. Kidney function seems to be back to baseline. 2. History of liver transplant with chronic rejection. Liver enzymes today are at her baseline, so no new changes made. We are still waiting for the ____ level to come back to readjust medications. The dosage was already lowered once this admission. 3. Type 2 diabetes mellitus, poorly controlled with extreme noncompliance. The patient's blood sugar is 80 this morning. 4. Adult failure to thrive, to go to [facility] for PT, OT today. JARED CHURCHILL MD CM:PNTRANS [id number] JARED CHURCHILL MD 02/27/17 1133 interface
--- NOTE | ~2017-02-20 | PR ---
[place], [place] PROGRESS NOTE NAME: KVNG RIVERO UNIT #: [id number] ROOM: 525 DOCTOR: SON MAHER MD BIRTHDATE: [birth year] DOS: 02/24/2017 NEPHROLOGY FOLLOWUP NOTE SUBJECTIVE: The patient was seen and examined. She is awake and alert. She states she is feeling a little bit better. She denied any chest pains. She did state she ate a little bit more today. PHYSICAL EXAMINATION: VITAL SIGNS: Temperature is afebrile, pulse 100, respirations 18, blood pressure 110/68. HEENT: Shows no JVD. Mucous membranes were somewhat dry. LUNGS: Clear. No crackles. HEART: Normal S1, S2. She was somewhat tachycardic. No rub. ABDOMEN: Soft, nontender. There was no organomegaly. EXTREMITIES: Had trace edema. SKIN: Showed no rash. LABORATORY DATA: Hemoglobin 11.5, white count of 7.8, platelets of 137. Sodium 140, potassium 4.5, CO2 of 21, BUN 32, creatinine 2.87, calcium is 8.1. Her recent tacrolimus level reported as ____ from a few days ago. IMPRESSION: 1. Acute on chronic kidney disease. The patient's renal function is improving. Likely this is related to prerenal factors. Fluids can continue for now. Once she is tolerating better oral intake, fluids can be discontinued. 2. Hypertension. Her blood pressure is actually on the lower side. Medications can continue at this point. Hold if systolic blood pressure is less than 100. 3. Anemia. Follow H and H. Her hemoglobin is stable. 4. Status post orthotopic liver transplant. The patient's tacrolimus has been decreased to 2 mg twice a day. Her recent elevated level is not clear if this truly was accurate. She reports to me she has been on a steady dose for quite some time. A repeat level needs to be checked which will be ordered. [place], [place] PROGRESS NOTE NAME: KVNG RIVERO UNIT #: [id number] ROOM: 525 DOCTOR: SON MAHER MD BIRTHDATE: [birth year] SON MAHER MD CM:HERMELINDOTRANS [phone] SON MAHER MD 02/24/17 2240 interface
--- NOTE | ~2017-02-20 | PR ---
[place], [place] [facility]GRESS NOTE [id number] #: [id number] ROOM: 525 DOCTOR: JARED HCURCHILL MD BIRTHDATE: [birth year] DOS: SUBJECTIVE: The patient states that she feels good and does not have any complaints. OBJECTIVE: VITAL SIGNS: Blood pressure is 136/92, pulse of 100, respirations 20, temperature 98.0. LUNGS: Clear. HEART: Regular. ABDOMEN: Obese, soft, nontender. EXTREMITIES: Without any edema. LABORATORY DATA: Shows some improvement in the BUN and creatinine. WBC 7.9, hemoglobin 11.2, hematocrit 33.6, platelets 149. BMP: Glucose 69, BUN 29, creatinine 3.50. AST 37, ALT 34, alkaline phosphatase 283, protein 5.2. ASSESSMENT AND PLAN: 1. Acute kidney injury from acute tubular necrosis, which is improving. 2. Benign hypertension. Blood pressure is starting to go up. I will add a low dose of Norvasc. 3. History of liver transplant with chronic rejection. Liver enzymes stable. 4. Adult failure to thrive with protein calorie malnutrition. The patient is encouraged to eat better. A consultation of Social service and PT, OT has been obtained for placement. JARED CHURCHILL MD CM:PNTRANS [phone] JARED CHURCHILL MD 02/22/17 1210 interface
--- NOTE | ~2017-02-20 | DS ---
[place], [place] DISCHARGE SUMMARY [id number] #: [id number] ROOM: 525 DOCTOR: JARED CHURCHILL MD BIRTHDATE: [birth year] DOS: 02/26/2017 HOSPITAL COURSE: This patient had routine blood work on the and her creatinine had gone up to 4.3. She appeared to be in acute kidney injury. The patient was advised to come in to the Emergency Room where she was evaluated and was admitted for acute kidney injury. The patient was placed on IV fluids. Her antihypertensive was already discontinued during the last hospitalization. Blood pressures did start going up and a low dose of Norvasc was restarted. Blood sugars have been very well controlled here. The patient overall has major depression and therefore does not take care of herself well at home and she does not eat right or take her medications ____ and does not like to follow up in the office either. She was admitted recently to the hospital and discharged on for hyperosmolar state. At that time her Prograf level was ordered. This has come back pretty high and the dosage of the medicine has been reduced. Dr. Cesar did see the patient during the hospitalization along with PT, OT and Social Service and patient has agreed to go to a rehab center this time, insurance has approved, so the plan is to discharge her to [facility] today to follow up as an outpatient. The patient's diet is ADA 1800. Blood sugars to be checked twice daily. DISCHARGE MEDICATIONS: Amlodipine 5 daily, tacrolimus 2 mg twice a day, vitamin D 50,000 units once a week, 70/30 insulin 14 units twice a day, oxycodone 5 b.i.d., metoclopramide 5 b.i.d. p.r.n. for nausea, Remeron 30 at bedtime, Cymbalta 30 daily, simvastatin 5 daily. JARED CHURCHILL MD CM:DISCHARG [id number] JARED CHURCHILL MD 02/26/17 1627 interface
--- NOTE | ~2017-02-20 | WRIGHTHP ---
[place], [place] PATIENT HISTORY AND PHYSICAL EXAM NAME: KVNG RIVERO [facility] #: [id number] UNIT #: [id number] ROOM: 525 DOCTOR: JARED CHURCHILL MD BIRTHDATE: [birth year] DOS: 02/21/2017 HISTORY OF PRESENT ILLNESS: This patient is very well known to us. She is 57-year-old. The patient had routine blood work in the office and was found to have acute renal failure and she was called in to get admitted to the hospital. The patient denies having any complaints of chest pains or palpitations. She has been dizzy and lightheaded. Her blood sugar reading was 430 on blood work in the ER yesterday, but her creatinine had jumped up to 4.3, so she was asked to come in to the ER. I spoke to Dr. Roberts about admitting the patient with acute kidney injury. The patient this morning does not have any complaints; does not have any complaints of dizziness, lightheadedness. She was very recently admitted to the hospital with hyperosmolar state from poorly controlled diabetes. She also had acute kidney injury from ATN from hypotension and her antihypertensives were discontinued and the patient was given IV fluids and her creatinine was around 3.1 when she was discharged from the hospital. The patient does not take her medications properly either. PAST MEDICAL HISTORY: Significant for: 1. History of alcoholic liver disease. She underwent a liver transplant years ago with chronic rejection. 2. Type 2 diabetes mellitus, insulin-dependent, poorly controlled. 3. Chronic low back pain. 4. Fibromyalgia. 5. Major depression, moderate, recurrent. 6. ATN from hypotension resulting in acute renal failure. 7. Chronic kidney disease. 8. Diabetic nephropathy. 9. Gastroparesis, diabetic. MEDICATIONS: She is currently on oxycodone 5 b.i.d., Ambien 5 at bedtime, Cymbalta 30 daily, Remeron 30 daily, ____ daily, Prograf 3 mg twice a day, insulin 70/30 14 units twice a day, Reglan 5 b.i.d., vitamin D 50,000 units once a week. Her antihypertensives Norvasc, Lopressor and lisinopril are discontinued. SOCIAL HISTORY: Smokes about half to one pack of cigarettes a day. Denies using any alcohol now. PHYSICAL EXAMINATION: GENERAL: The patient is awake and alert and oriented. VITAL SIGNS: Blood pressure is 122/78, pulse of 84, respirations 16, temperature 98.6. LUNGS: Diminished breath sounds, clear. HEART: Regular. ABDOMEN: Obese, soft, nontender. EXTREMITIES: Without any edema. LABORATORY DATA: WBC count is 5.9, hemoglobin 11.2. Comprehensive: Glucose 641, BUN 31, creatinine 4.18, sodium 132, potassium 4.8, chloride 100, bicarbonate 21. [place], [place] PATIENT HISTORY AND PHYSICAL EXAM NAME: KVNG RIVERO UNIT #: [id number] ROOM: [facility] DOCTOR: JARED CHURCHILL MD BIRTHDATE: [birth year] ASSESSMENT AND PLAN: 1. Acute kidney injury from acute tubular necrosis. We will start her IV fluid. Renal re-consultation has been obtained. A recent renal ultrasound was negative. 2. Type 2 diabetes mellitus, insulin-dependent, poorly controlled. 3. Hyperglycemia. Continue coverage scale. 4. Adult failure to thrive. PT/OT to be consulted and possible placement for short term rehabilitation to a rehab center. Social Service will be consulted. 5. History of renal transplant with chronic rejection, followed by [facility] Transplant Clinic, continue Prograf. JARED CHURCHILL MD CM:HISPHYS:PATIENT HISTORY AND PHYSICAL EXAMINATION [phone] JARED CHURCHILL MD 02/21/172137 interface
[~2017-02-20 22:02] MED LIST changes: +AMITRIPTYLINE10 MG PO; +CYMBALTA30 MG PO; +MEGACE 40400 MG/10 PO; +OXYCODONE HCL5 M1 PO; +PROTONIX40 MG PO; +REGLAN5 MG PO; +REMERON30 M1 PO
[2017-02-20 22:11] VITALS: BP 152/88
[2017-02-20 22:55] LABS: BASO % 0.2 % (0.0-1.0); EOS # 0.1 10*3/uL (0.0-0.4); EOS % 0.8 % (1.0-4.0); HEMATOCRIT 33.5 % (37.0-47.0); HEMOGLOBIN 11.2 g/dl (12.0-16.0); LYMPH # 1.3 10*3/uL (1.3-4.4); LYMPH % 21.1 % (27.0-41.0); MEAN CELL VOLUME 89.1 fl (81.0-99.0); MEAN CORPUSCULAR HGB 29.8 pg (27.0-31.0); MEAN CORPUSCULAR HGB CONC 33.4 g/dl (33.0-37.0); MONO # 0.6 10*3/uL (0.1-1.0); MONO % 10.8 % (3.0-9.0); NEUT # 3.9 10*3/uL (2.3-7.9); NEUT % 66.6 % (47.0-73.0); PLATELET COUNT AUTOMATED 122 10*3/uL (130-400); RED BLOOD COUNT 3.76 10*6/uL (4.10-5.10); RED CELL DISTRI WIDTH 13.4 % (0-14.5); WHITE BLOOD COUNT 5.9 10*3/uL (4.8-10.8)
[2017-02-20 23:14] LABS: ALBUMIN 2.3 gm/dl (3.1-4.5); CREATININE 4.18 mg/dL (0.55-1.02); POTASSIUM 4.8 mmol/L (3.5-5.1); TOTAL PROTEIN 5.8 gm/dL (6.4-8.2)
[2017-02-21 00:03] VITALS: BP 141/74
[2017-02-21 00:40] VITALS: BP 148/91
--- NOTE | 2017-02-21 00:40 | NUR ---
A 57, admitted to 5E, under the services of JARED Marin MD with a diagnosis of acute kidney injury (nontramatic). Chief complaint is weak dizzy, felt like she was going to fall but was home and able to help her.pt. said Dr. Cline called her and told her to come to hospital because of abnormal labs. pt. states she has been retaining urine today denies n/v,said she had some SOB with exertion, pt. denies chest pain. Patient arrived via stretcher from ER. Monitor applied. Initial assessment completed. Vital signs taken and recorded. JARED MARIN MD notified of admission to the unit. Orders received. See assessment for past medical history, medications and allergies. Patient and/or family oriented to unit. [facility] visitation policy reviewed. Clothing/patient valuable form completed. CHANTE BERRY
--- NOTE | 2017-02-21 01:12 | NUR ---
PT. NOT SURE OF HOME MEDICATIONS AND WILL NEED HER TO BRING A LIST IN TOMORROW.
--- NOTE | 2017-02-21 03:09 | NUR ---
PT SAID ABD PAIN HAS SUBSIDED SOME BUT IS STILL IN PAIN RATED "6" OXY GIVEN PER ORDER FOR PAIN.
--- NOTE | 2017-02-21 04:00 | NUR ---
PT. SLEEPING. OXY EFFECTIVE FOR PAIN.
--- NOTE | 2017-02-21 07:00 | NUR ---
CALLED DR. RODGERS AND NOTIFIED ANSWERING SERVICE OF CONSULT.
[2017-02-21 07:19] LABS: CREATININE 3.99 mg/dL (0.55-1.02); POTASSIUM 4.6 mmol/L (3.5-5.1)
[2017-02-21 08:00] VITALS: BP 128/78
--- NOTE | 2017-02-21 08:00 | NUR ---
DR. CHURCHILL IN TO SEE PATIENT.
--- NOTE | 2017-02-21 08:30 | NUR ---
Power Regulator in to talk to patient. Patient states lives at HOME with HER . There are 10 steps in the home. Physician: DR CHURCHILL [facility]acy: [facility] [place] Home health services: NONE Patient's level of ADLs: MINIMAL ASSIST Patient has working utilities: YES DME: GLUCOMETER Follow-up physician's appointment after d/c: PREFERS TO MAKE HER OWN APPT Does patient want to access PORTAL?: Discharge plan HOME. BLAIR HOUSER DISCUSSED SNF STAY-REFUSES
--- NOTE | 2017-02-21 10:00 | NUR ---
DR. ALVARADO IN TO SEE PATIENT. DR. CHURCHILL NOTIFIED AND DR. MCKINNON SPOKE TO DR. CHURCHILL REGARDING PATIENT'S PLAN OF CARE. AM MEDS TAKEN.
[2017-02-21 12:00] VITALS: BP 120/68
--- NOTE | 2017-02-21 13:26 | NUR ---
SPEECH PATHOLOGY Screening completed. There was no reports of acute receptive/expressive difficulties. No dysphagia is reported and recent CXR revealed no acute cardiopulmonary disease. Speech services are not recommended at this time however this dept. will remain available should future needs arise. KERRIE LAMB MSCCC-UX ENGINEER
[2017-02-21 16:00] VITALS: BP 122/78
--- NOTE | 2017-02-21 17:36 | NUR ---
PATIENT RESTING WITH NO DISTRESS. IV FLUIDS INFUSING. FOR LABS IN AM.
[2017-02-21 17:38] LABS: BILIRUBIN NEGATIVE (NEGATIVE); BLOOD 1+ (NEGATIVE); CLARITY CLOUDY (CLEAR); COLOR YELLOW (YELLOW); GLUCOSE NEGATIVE (NEGATIVE); KETONE NEGATIVE (NEGATIVE); LEUKO ESTERASE 3+ (NEGATIVE); NITRITE NEGATIVE (NEGATIVE); PH 5.5 (5.0-9.0); SPECIFIC GRAVITY <= 1.005 (1.005-1.030); UROBILINOGEN 0.2 E.U./dl (0.2-1.0)
[2017-02-21 17:49] LABS: BACTERIA 2+; WBC 51-100 wbc/hpf (0-5)
[2017-02-21 20:00] VITALS: BP 120/73
--- NOTE | 2017-02-21 20:28 | NUR ---
PT REQUESTED PAIN MEDICATION. PT RATES PAIN AT 8 OUT OF 10 AND DESCRIBES IT CONSTANT "LIKE A TOOTH ACHE", DULL AND ACHEY IN THE ABDOMEN AREA. OXYCODONE WAS GIVEN.
--- NOTE | 2017-02-21 21:18 | NUR ---
PAIN MEDICATION WAS EFFECTIVE. PT RATES PAIN 2 OUT OF 10.
--- NOTE | 2017-02-21 21:30 | NUR ---
BSG WAS 78. SNACK WAS GIVEN.
[2017-02-22] VITALS: BP 120/70
[2017-02-22 04:00] VITALS: BP 136/92
[2017-02-22 07:11] LABS: BASO % 0.3 % (0.0-1.0); EOS # 0.1 10*3/uL (0.0-0.4); EOS % 1.5 % (1.0-4.0); HEMATOCRIT 33.6 % (37.0-47.0); HEMOGLOBIN 11.2 g/dl (12.0-16.0); LYMPH # 2.5 10*3/uL (1.3-4.4); LYMPH % 31.4 % (27.0-41.0); MEAN CORPUSCULAR HGB 29.3 pg (27.0-31.0); MEAN CORPUSCULAR HGB CONC 33.3 g/dl (33.0-37.0); MEAN PLATELET VOLUME 10.6 fl (9.6-12.3); MONO # 0.9 10*3/uL (0.1-1.0); MONO % 11.6 % (3.0-9.0); NEUT # 4.3 10*3/uL (2.3-7.9); NEUT % 54.8 % (47.0-73.0); PLATELET COUNT AUTOMATED 149 10*3/uL (130-400); RED BLOOD COUNT 3.82 10*6/uL (4.10-5.10); RED CELL DISTRI WIDTH 13.5 % (0-14.5); WHITE BLOOD COUNT 7.9 10*3/uL (4.8-10.8)
[2017-02-22 07:25] LABS: POTASSIUM 4.5 mmol/L (3.5-5.1)
--- NOTE | 2017-02-22 07:30 | NUR ---
ASSUMED CARE OF PT AT THIS TIME, RESPS EASY AND NONLABORED WITH NO S/S OF DISTRESS CALL LIGHT WITH IN REACH
[2017-02-22 07:31] LABS: CREATININE 3.5 mg/dL (0.55-1.02); TOTAL PROTEIN 5.2 gm/dL (6.4-8.2)
[2017-02-22 08:00] VITALS: BP 142/90
--- NOTE | 2017-02-22 08:30 | NUR ---
SOFTWARE SALES CONSULTANT VS. PRESENT AND REQUESTING SNF STAY AT [facility]. PT AGREES. DC PRODUCER ARBORIST MANAGER WILL MAKE REFERRAL.
--- NOTE | 2017-02-22 08:36 | NUR ---
DR. CHURCHILL IN TO SEE PT AT THIS TIME
--- NOTE | 2017-02-22 09:07 | NUR ---
Patient requested referral be made to [facility], contacted maria victoria and faxed referral. Will require PT and OT evals for precert. Waiting on acceptance
--- NOTE | 2017-02-22 10:53 | NUR ---
PHYSICAL THERAPY PAtient evaluated on 5, full evaluation to follow. Continue with PT as per plan of care with fall, mod (A) and significant acute debility precautions. Will require SNF for impaired mobility. PAtient is moderate complexity via chart review, tests and evaluation: 22813. Thank you for this referral. Madelin Puga,PT
--- NOTE | 2017-02-22 11:09 | NUR ---
Occupational Therapy evaluation completed on 5 with full eval to follow. Precautions include yadav, moderate complexity level 27925, fall risk, abd pain, BUE edema in elbows, IV UE. Recommend OT per POC and SNF to enable return home at [facility]. Thank you for this referral. Katelyn Mejia OTR/L
--- NOTE | 2017-02-22 11:18 | NUR ---
Faxed PT and OT evals for precert to [facility].
[2017-02-22 12:00] VITALS: BP 140/88
--- NOTE | 2017-02-22 13:06 | NUR ---
PHYSICAL THERAPY Patient presented to therapy with report of being fatigued and not being ready for therapy. Patient said to come back tommorrow and she will do therapy. Antonio Bell ELECTRICAL ASSEMBLY SUPERVISOR
[2017-02-22 16:00] VITALS: BP 146/84
--- NOTE | 2017-02-22 17:06 | NUR ---
OXYCODONE 5 MG GIVEN FOR C/O GENERALIZED PAIN,01/28.
--- NOTE | 2017-02-22 19:45 | NUR ---
PATIENT IS AWAKE, ALERT AND ORIENTED X3. PLEASANT AND COOPERATIVE WITH ASSESSMENT. LUNGS ARE DIMINISHED THROUGHOUT LUNGFIELDS. 02 VIA NASAL CANNULA INTACT. ABDOMEN IS SOFT AND NON-TENDER UPON PALPATION, BOWEL SOUNDS ARE NORMOACTIVE X 4 QUADS. 2+ EDEMA TO BLE, PPP. PATIENT VERBALIZED C/O CONSTIPATION. DENIES ANY FURTHER NEEDS. CALL LIGHT IS IN REACH.
[2017-02-22 20:00] VITALS: BP 119/70
[2017-02-23] VITALS: BP 115/73
--- NOTE | 2017-02-23 06:09 | NUR ---
PATIENT AROUSES EASILY FOR MORNING MEDICATIONS AT THIS TIME. ALERT AND ORIENTED X3. PLEASANT AND COOPERATIVE. PATIENT DENIES ANY NEEDS AT THE PRESENT TIME. CALL LIGHT IS IN REACH.
[2017-02-23 06:19] LABS: BASO % 0.3 % (0.0-1.0); EOS # 0.2 10*3/uL (0.0-0.4); EOS % 1.9 % (1.0-4.0); HEMOGLOBIN 11.5 g/dl (12.0-16.0); LYMPH # 2.5 10*3/uL (1.3-4.4); LYMPH % 31.5 % (27.0-41.0); MEAN CELL VOLUME 88.8 fl (81.0-99.0); MEAN CORPUSCULAR HGB CONC 33.8 g/dl (33.0-37.0); MEAN PLATELET VOLUME 10.6 fl (9.6-12.3); MONO # 0.7 10*3/uL (0.1-1.0); MONO % 9.1 % (3.0-9.0); NEUT # 4.5 10*3/uL (2.3-7.9); NEUT % 57.1 % (47.0-73.0); PLATELET COUNT AUTOMATED 137 10*3/uL (130-400); RED BLOOD COUNT 3.83 10*6/uL (4.10-5.10); RED CELL DISTRI WIDTH 13.6 % (0-14.5); WHITE BLOOD COUNT 7.8 10*3/uL (4.8-10.8)
[2017-02-23 06:26] LABS: CREATININE 3.06 mg/dL (0.55-1.02); POTASSIUM 4.5 mmol/L (3.5-5.1)
[2017-02-23 08:00] VITALS: BP 138/84
--- NOTE | 2017-02-23 08:38 | NUR ---
PHYSICAL THERAPY Norma seen this AM 1:1 and ask me to come back around noon, but no therapy right now. FLIP GONZALES SCHEDULING CLERK.
--- NOTE | 2017-02-23 09:36 | NUR ---
patient has been accepted to [facility]. Hosptial exemption completed online in [employer] system. Patient can go when precert is obtained.
--- NOTE | 2017-02-23 09:41 | NUR ---
PATIENT DECLINED OT IN AM THIS DATE. WILL TRY BACK LATER DATE. CICI SORIANO/Todd
--- NOTE | 2017-02-23 11:15 | NUR ---
Shift chart check completed.
[2017-02-23 12:00] VITALS: BP 128/78
--- NOTE | 2017-02-23 12:53 | NUR ---
PHYSICAL THERAPY Back this PM to treat Mrs Batres, Pt supine in bed. Said that she is wating on her lunch. I told Norma that i could help her get up in her bedside chair for lunch but she was not going to get up. I told Mrs Batres that sitting up would help her from pneumonia setting in, but she was going to stay in bed and not get up. FLIP GONZALES PIT CREW SUPPORT WORKER.
--- NOTE | 2017-02-23 13:43 | NUR ---
PATIENT MEDICATED WITH PO OXY IR FOR PAIN IN HER ABDOMEN RATED 7/10
--- NOTE | 2017-02-23 14:30 | NUR ---
PATIENT STATES MEDICATION EFFECTIVE
[2017-02-23 16:00] VITALS: BP 133/73
--- NOTE | 2017-02-23 19:26 | NUR ---
PATIENT RESTING IN BED , AROUSES EASILY FOR ASSESSMENT. LUNGS ARE DIMINISHED THROUGHOUT LUNGFIELDS. ROOM AIR. ABDOMEN IS SOFT AND NON-TENDER UPON PALPATION, BOWEL SOUNDS ARE NORMOACTIVE X 4 QUADS. NULL PATENT FOR CLEAR STRAW COLORED URINE. 2+ EDEMA TO BLE , PPP. PATIENT DENIES ANY NEEDS AT THE PRESENT TIME. CALL LIGHT IS IN REACH.
[2017-02-23 20:00] VITALS: BP 142/76
--- NOTE | 2017-02-23 23:30 | NUR ---
Patient resting quietly with no c/o discomfort. Respirations easy and regular. Vital signs stable. No overt distress. IRENA FERRER
[2017-02-24] VITALS: BP 114/72
[2017-02-24 07:03] LABS: CREATININE 2.87 mg/dL (0.55-1.02); POTASSIUM 4.5 mmol/L (3.5-5.1)
[2017-02-24 08:00] VITALS: BP 122/76
--- NOTE | 2017-02-24 11:25 | NUR ---
BEDSIDE GLUCOSE RESULT 68; PATIENT HAVING NO S/S HYPOGLYCEMIA, PROVIDED ORANGE JUICE AND ADMINISTERED ONE AMPULE D50 ORDERED PER SLIDING SCALE. AM SCHEDULED NOVOLOG INSULIN WAS HELD D/T BSG 66 THIS MORNING WITH POOR APPETITE.
--- NOTE | 2017-02-24 11:32 | NUR ---
MEDICATED WITH PRN PO OXY-IR FOR ABDOMINAL AND LOWER BACK PAIN.
[2017-02-24 12:00] VITALS: BP 110/68
--- NOTE | 2017-02-24 12:34 | NUR ---
PRN OXY-IR EFFECTIVE; PATIENT RESTING W/NO S/S PAIN.
[2017-02-24 16:00] VITALS: BP 94/64
--- NOTE | 2017-02-24 16:35 | NUR ---
HELD PM SCHEDULED INSULIN D/T PATIENT NOT TAKING PO SUPPER/NO APPETITE TODAY.
[2017-02-24 20:00] VITALS: BP 111/56
--- NOTE | 2017-02-24 20:00 | NUR ---
SLEEPING, AWAKENS EASILY. RESPIRATIONS EASY. LUNGS DIMINISHED, CLEAR. PULSE OX 99% RA. +1 BLE EDEMA NOTED. NULL PATENT. IV FLUIDS INFUSING PER ORDER. CALL LIGHT WITHIN REACH. BED ALARM MAINTAINED FOR SAFETY
[2017-02-25] VITALS: BP 115/64
--- NOTE | 2017-02-25 | NUR ---
SLEEPING. RESPIRATIONS EASY. VSS. CALL LIGHT WITHIN REACH
--- NOTE | 2017-02-25 06:00 | NUR ---
SLEPT THROUGHOUT NIGHT WITH NO DISTRESS NOTED. RESPIRATIONS EASY. IV FLUIDS MAINTAINED. CALL LIGHT WITHIN REACH. NO VOICED COMPLAINTS THIS SHIFT
[2017-02-25 08:00] VITALS: BP 119/77; BP 120/51
--- NOTE | 2017-02-25 09:12 | NUR ---
MEDICATED WITH PRN PO OXY-IR FOR C/O SHARP ABDOMINAL PAINS RATED 7/10 ON PAIN SCALE.
--- NOTE | 2017-02-25 10:03 | NUR ---
PRN PO OXY-IR EFFECTIVE, PER PATIENT.
[2017-02-25 12:00] VITALS: BP 114/70
[2017-02-25 16:00] VITALS: BP 100/60
--- NOTE | 2017-02-25 19:39 | NUR ---
PATIENT ASLEEP IN BED AT THIS TIME, AROUSES EASILY. NO S/S OF DISTRESS NOTED ON ROOM AIR. NO COMPLAINTS VOICED AT THIS TIME. WILL MONITOR. CALL LIGHT IN REACH.
[2017-02-25 20:00] VITALS: BP 103/61
[2017-02-26] VITALS: BP 107/68
--- NOTE | 2017-02-26 05:57 | NUR ---
IV DEXTROSE ADMINISTERED AT THIS TIME FOR BSG 49.
--- NOTE | 2017-02-26 06:03 | NUR ---
BSG RECHECKED AFTER IV DEXTROSE ADMINISTRATION. NOW 277. PATIENT MUCH MORE AWAKE AT THIS TIME. STATES SHE WAS FEELING SWEATY, SHAKY, AND DROWSY. STATES SHE FEELS MUCH BETTER NOW. LIAM DELUCA PROVIDED AT THIS TIME PER PT REQUEST. WILL MONITOR BS.
--- NOTE | 2017-02-26 06:30 | NUR ---
BSG RECHECKED AT THIS TIME. CURRENTLY 112. PATIENT DENIES ANY NEW/WORSENING SYMPTOMS. WILL CONTINUE TO MONITOR. CALL LIGHT LEFT IN REACH.
[2017-02-26 08:00] VITALS: BP 108/68
--- NOTE | 2017-02-26 08:00 | NUR ---
SHIFT ASSESSMENT COMPLETE. PATIENT VOICES NO COMPLAINTS AT THIS TIME. BED IS IN LOW POSITION. CALL LIGHT IS WITHIN REACH.
--- NOTE | 2017-02-26 08:12 | NUR ---
PHYSICAL THERAPY Mrs Batres was seen this AM and talked into her treatment, present. Transfer supine/sit MIN A X 1, sitting balance CGA X 1, X 5 min. Sit/stand and standing balance with Pt using her IV Pole for standing balance MIN A X 1. Norma has a cath, Followed by gait Pt has her IV pole in her left to help with her balance 44' X 1, with [facility] HOSPICE LIAISON X 1 with verbal cueing for gait, balance turn safety. Pt up in her bedside chair, call light and going to stay with her, treatment time 18 min. FLIP GONZALES DIET COUNSELOR.
--- NOTE | 2017-02-26 08:44 | NUR ---
Patient accepted to [facility] and can go when precert obtained.
--- NOTE | 2017-02-26 09:35 | NUR ---
Patient identified by name and date of . Patient seen 1:1 20 minutes this date. Patient seated in recliner with family member present in AM. Patient getting ready to consume breakfast and requested that I come back after she was done. patient educated benefits of OT this date for overall increase independence and safety with functional tasks. Returned to patient's room after breakfast with patient's son present. Patient completed ADL dressing task doffing/ donning new gown Mod A manage ties and heart monitor and min instruction. Patient completed LB dressing donning/ doffing pants mod A required for management yadav and to pull pants over B feet and min instruction. Patient completed stand pivot xfer recliner to bed Min A without AD. Sit to supine bed Mod A to lift B legs with verbal instruction . Patient's call light within reach. CICI BUTLER
[2017-02-26 12:00] VITALS: BP 140/90
--- NOTE | 2017-02-26 14:32 | NUR ---
CATHETER REMOVED. PATIENT TOLERATED WELL.
[2017-02-26] MEDS ORDERED: AMLODIPINE BESYL5 MG PO (15:33)
[2017-02-26] MEDS ORDERED: OXYCODONE HCL5 M1 PO (15:33)
[2017-02-26] MEDS ORDERED: NOVAPLUS TACROLI1 MG PO (15:42)
[2017-02-26 16:00] VITALS: BP 129/85
--- NOTE | 2017-02-26 17:49 | NUR ---
DR CHURCHILL NOTIFIED THAT PT MAY NOT BE ABLE TO GO TO [facility] TONIGHT DUE TO PRECERT NOT BEING BACK AND THAT [facility] WAS CHECKING TO SEE IF IT WAS AND WOULD LET ME KNOW IF PT COULD BE ACCEPTED TONIGHT.
--- NOTE | 2017-02-26 17:57 | NUR ---
[facility] CALLED BACK TO SAY PRECERT WAS NOT BACK AND PT COULD NOT BE ACCEPTED TONIGHT. PT AND AWARE. DR CHURCHILL AWARE.
--- NOTE | 2017-02-26 18:50 | NUR ---
PATIENT HAS NOT VOIDED SINCE NULL REMOVED. BLADDER SCANNED FOR 246CC.
[2017-02-26 20:00] VITALS: BP 111/66
--- NOTE | 2017-02-26 22:14 | NUR ---
PATIENT BLADDER SCANNED AT THIS TIME FOR 335. PATIENT STATES SHE HAS ONLY VOIDED ONCE SINCE NULL HAS BEEN REMOVED. STATES SHE WENT A LITTLE BIT, BUT MISSED THE HAT. PATIENT STATES SHE DOES NOT FEEL LIKE SHE HAS TO GO AT THIS TIME. WILL MONITOR OUTPUT THROUGHOUT NIGHT.
[2017-02-27] VITALS: BP 116/64
[2017-02-27 06:53] LABS: BASO % 0.3 % (0.0-1.0); EOS # 0.3 10*3/uL (0.0-0.4); EOS % 3.9 % (1.0-4.0); HEMATOCRIT 31.6 % (37.0-47.0); HEMOGLOBIN 10.7 g/dl (12.0-16.0); LYMPH # 2.4 10*3/uL (1.3-4.4); LYMPH % 36.8 % (27.0-41.0); MEAN CELL VOLUME 88.8 fl (81.0-99.0); MEAN CORPUSCULAR HGB 30.1 pg (27.0-31.0); MEAN CORPUSCULAR HGB CONC 33.9 g/dl (33.0-37.0); MEAN PLATELET VOLUME 9.9 fl (9.6-12.3); MONO # 0.6 10*3/uL (0.1-1.0); NEUT # 3.2 10*3/uL (2.3-7.9); NEUT % 49.7 % (47.0-73.0); PLATELET COUNT AUTOMATED 134 10*3/uL (130-400); RED BLOOD COUNT 3.56 10*6/uL (4.10-5.10); RED CELL DISTRI WIDTH 14.3 % (0-14.5); WHITE BLOOD COUNT 6.4 10*3/uL (4.8-10.8)
[2017-02-27 07:18] LABS: ALBUMIN 1.8 gm/dl (3.1-4.5); CREATININE 2.84 mg/dL (0.55-1.02); MAGNESIUM 1.5 mg/dL (1.5-2.1); PHOSPHOROUS 3.7 mg/dL (2.5-4.9); POTASSIUM 4.5 mmol/L (3.5-5.1); TOTAL PROTEIN 5.1 gm/dL (6.4-8.2)
[2017-02-27 08:00] VITALS: BP 130/76
--- NOTE | 2017-02-27 09:44 | NUR ---
PHYSICAL THERAPY Norma seen this AM for her therapy and said that she wanted her breakfast first. 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
--- NOTE | 2017-02-27 10:55 | NUR ---
Patient received auth to go to [facility]. Will notify nursing
--- NOTE | 2017-02-27 11:19 | NUR ---
Patient is being discharged to [facility], will be transported via around 12:30. NH and nursing notified.
--- NOTE | 2017-02-27 11:23 | NUR ---
PRE-CERT OBTAINED FOR [facility] PER [employer]. NURSE AT [facility] NOTIFIED AND REPORT GIVEN. PER PATIENT, APPROXIMATE TIME SHE WILL ARRIVE THERE IS 1230, HER IS COMING TO TRANSPORT HER BY CAR. HEPLOCK AND COMPO CONVEYOR OPERATOR REMOVED.
--- NOTE | 2017-02-27 11:36 | NUR ---
Occupational Therapy SORIANO went to see patient for OT and per nurse, patient is being discharged to [facility]. BO Wheeler/Todd
--- NOTE | 2017-02-27 11:47 | NUR ---
Discharge instructions reviewed with patient/family. Patient receptive and verbalizes understanding. Follow-up care arranged. Written instructions given to patient/family. IS PRESENT TO RECEIVE DISCHARGE INSTRUCTIONS AND PACKET WITH INSTRUCTIONS FOR [facility]; PATIENT READY FOR DISCHARGE BY WHEELCHAIR. СЕРГЕЙ MCCLENDON
--- NOTE | 2017-02-27 11:51 | NUR ---
PATIENT DISCHARGED TO FRONT LOBBY BY WHEELCHAIR, ACCOMPANIED BY [facility], FOR TRANSPORT TO [facility] BY PRIVATE VEHICLE WITH .
--- NOTE | 2017-02-27 11:52 | NUR ---
PHYSICAL THERAPY CO-SIGN I approve of the Phyical Therapy notes written above. MU NEWELL PT
--- NOTE | 2017-02-28 08:27 | NUR ---
OCCUPATIONAL THERAPY CO-SIGN I approve of the Occupational Therapy notes written above. HANG WATTERS OTR/Todd
== END 2017-02-27 11:45 | disposition other institution (70) | DRG 683 ==
LOC: ED 22:02 → 5E 23:11 → EDHOLD 23:11 → 5E 23:22
PROVIDERS: Emergency Medicine Emergency Medical Services; Family Medicine; Internal Medicine Nephrology; ADMIT Internal Medicine
DX: N17.0 Acute kidney failure with tubular necrosis (principal); Z94.4 Liver transplant status; E11.22 Type 2 diabetes mellitus with diabetic chronic kidney disease; E11.65 Type 2 diabetes mellitus with hyperglycemia; F33.1 Major depressive disorder, recurrent, moderate; N18.4 Chronic kidney disease, stage 4 (severe); Z79.4 Long term (current) use of insulin; Z79.899 Other long term (current) drug therapy; I12.9 Hypertensive chronic kidney disease with stage 1 through stage 4 chronic kidney disease, or unspecified chronic kidney disease; Z90.49 Acquired absence of other specified parts of digestive tract; Z98.41 Cataract extraction status, right eye; F17.210 Nicotine dependence, cigarettes, uncomplicated; Z80.9 Family history of malignant neoplasm, unspecified; Z82.49 Family history of ischemic heart disease and other diseases of the circulatory system; G89.29 Other chronic pain; M54.5 Low back pain; R62.7 Adult failure to thrive; D63.8 Anemia in other chronic diseases classified elsewhere; Z91.14 Patient's other noncompliance with medication regimen

== ENCOUNTER 2017-03-23 01:46 | Emergency (ER) | payer BC, MEDICARE ==
[~2017-03-23] VITALS: Ht 167.6 cm; Wt 71.7 kg
[~2017-03-23 01:46] MED LIST changes: +AMLODIPINE BESYL5 MG PO; +NOVAPLUS TACROLI1 MG PO
[2017-03-23 01:54] VITALS: BP 105/64
[2017-03-23 02:55] LABS: BASO % 0.2 % (0.0-1.0); EOS % 0.3 % (1.0-4.0); HEMATOCRIT 29.4 % (37.0-47.0); HEMOGLOBIN 9.6 g/dl (12.0-16.0); LYMPH # 1.2 10*3/uL (1.3-4.4); LYMPH % 10.5 % (27.0-41.0); MEAN CELL VOLUME 88.3 fl (81.0-99.0); MEAN CORPUSCULAR HGB 28.8 pg (27.0-31.0); MEAN CORPUSCULAR HGB CONC 32.7 g/dl (33.0-37.0); MEAN PLATELET VOLUME 10.7 fl (9.6-12.3); MONO # 0.7 10*3/uL (0.1-1.0); MONO % 6.4 % (3.0-9.0); NEUT % 82.1 % (47.0-73.0); PLATELET COUNT AUTOMATED 206 10*3/uL (130-400); RED BLOOD COUNT 3.33 10*6/uL (4.10-5.10); RED CELL DISTRI WIDTH 14.2 % (0-14.5)
[2017-03-23 03:06] LABS: CREATININE 2.22 mg/dL (0.55-1.02); POTASSIUM 5.9 mmol/L (3.5-5.1)
[2017-03-23] MEDS ORDERED: KETOROLAC10 MG PO (03:24)
[2017-03-23] MEDS ORDERED: ZOFRAN ODT4 MG SL (03:24)
--- NOTE | 2017-03-23 03:35 | NUR ---
NURSE TO NURSE REPORT GIVEN TO CODI GARNER AT [facility] AT THIS TIME. STAFF NOTIFIED THAT PT IS BEING DC'D BACK TO [facility].
[2017-03-23] MEDS ORDERED: NORCO 5-325 TA1 EACH PO (03:48)
[2017-03-23 09:40] VITALS: BP 103/59
[2017-03-23 10:51] LABS: ALBUMIN 1.7 gm/dl (3.1-4.5); CREATININE 2.54 mg/dL (0.55-1.02); POTASSIUM 5.2 mmol/L (3.5-5.1); TOTAL PROTEIN 5.1 gm/dL (6.4-8.2)
[2017-03-23 11:00] VITALS: BP 109/63
[2017-03-23 13:11] VITALS: BP 117/75
--- NOTE | 2017-03-23 14:38 | NUR ---
PT IS RESTING,REMAINS ALERT,BUT DROWSY. PT WILL BE TRANSFERRED TO [facility]. WAITING FOR BED ASSIGNMENT THERE. PT AND HER ARE AWARE OF THIS. JESSICA GARNER
[2017-03-23 14:39] VITALS: BP 119/79
--- NOTE | 2017-03-23 15:39 | NUR ---
STILL WAITING FOR BED ASSIGNMENT AT [facility]. A LUNCH TRAY HAS BEEN ORDERED FOR PT. NO CHANGE NOTED IN CONDITION. JESSICA GARNER
[2017-03-23 15:51] VITALS: BP 122/79
--- NOTE | 2017-03-23 16:23 | NUR ---
PT IS AWAKE AND ALERT AT THIS TIME. SHE IS SITTING UP EATING LUNCH NOW. SHE IS ABLE TO FEED HERSELF WITHOUT DIFFICULTY. STILL WAITING FOR BED ASSIGNMENT AT [facility]. PT IS AWARE. NO CHANGE NOTED IN CONDITION. JESSICA GARNER
--- NOTE | 2017-03-23 16:41 | NUR ---
[facility] HAS DIRECTED US TO SEND THIS PT TO THE ER AT [facility]. [facility] HAS BEEN CALLED,THEY WILL TRANSPORT THE PT. PT AND HER HAVE BEEN MADE AWARE OF THIS. JESSICA GARNER
--- NOTE | 2017-03-23 16:56 | NUR ---
[facility] IS HERE NOW TO TRANSPORT PT. SHE REMAINS ALERT. VS ARE STABLE. JESSICA GARNER
--- NOTE | 2017-03-23 17:12 | NUR ---
Transfer Out, from the Emergency Department - Stable This patient, KVNG RIVERO, [birth year], [id number], [id number], was examined by the Emergency Department physician, REECE Wood M.D. and efforts were made to stabilize the patient. The patient's condition is stable. The reason for transfer is need higher level of care . The Emergency physician has made the decision to transfer the patient out. Refer to the ED physician's dictation for the family/back-up physician notified. The attending physician has spoken to the accepting physician at the receiving facility, [facility]. Refer to the ED physician's dictation. The receiving facility has space and qualified personnel to care for the patient, and has agreed to accept the patient. Proper equipment and trained personnel have been arranged. The mode of transport is ground. The agency is [facility]. The Emergency physician has spoken to the transport staff re: patient's condition and needs during transport. Copies of the medical record have been forwarded to the receiving facility, including: - Emergency Department record: - name, address, hospital number, age, next of kin - presenting problem - history of injury, past medical history - treatment, medications & route, fluid type & volume - lab and xray findings, films - physical findings - vitals signs -- prehospital, emergency, pre-transfer - preliminary diagnosis - status/condition - emergency medical services record - consent for transfer - authorization for record release - name of any involed physicians -- responsive or not - name and address of referring physician - name of contact physician at receiving facility - name of accepting physician at receiving facility Nursing report has been given to CADEN GARNER AT [facility] ED. Valuables include CLOTHES. and were given to DWIGHT MATIAS
== END 2017-03-23 18:00 | disposition short-term general hospital (02) ==
LOC: ED 01:46 → EDHOLD 12:11 → ED 12:11
PROVIDERS: Emergency Medicine; Emergency Medicine Emergency Medical Services
DX: S16.1XXA Strain of muscle, fascia and tendon at neck level, initial encounter (principal); S00.03XA Contusion of scalp, initial encounter; K72.90 Hepatic failure, unspecified without coma; F17.210 Nicotine dependence, cigarettes, uncomplicated; I12.9 Hypertensive chronic kidney disease with stage 1 through stage 4 chronic kidney disease, or unspecified chronic kidney disease; E11.22 Type 2 diabetes mellitus with diabetic chronic kidney disease; N18.9 Chronic kidney disease, unspecified; Z94.4 Liver transplant status; Z98.41 Cataract extraction status, right eye; Z90.49 Acquired absence of other specified parts of digestive tract; Z79.899 Other long term (current) drug therapy; Z79.4 Long term (current) use of insulin; W01.0XXA Fall on same level from slipping, tripping and stumbling without subsequent striking against object, initial encounter; Y93.89 Activity, other specified; Y92.129 Unspecified place in nursing home as the place of occurrence of the external cause; Y99.9 Unspecified external cause status

== ENCOUNTER → 2017-04-20 | Outpatient (CLI) | payer BC ==
[~2017-04-20] MED LIST changes: +KETOROLAC10 MG PO; +NORCO 5-325 TA1 EACH PO; +ZOFRAN ODT4 MG SL
== END ==
LOC: LAB 12:24
PROVIDERS: Internal Medicine
DX: Z79.899 Other long term (current) drug therapy (principal)

== ENCOUNTER → 2017-05-30 | Outpatient (CLI) | payer BC ==
[2017-05-30 12:31] LABS: BASO % 0.2 % (0.0-1.0); EOS # 0.2 10*3/uL (0.0-0.4); EOS % 2.1 % (1.0-4.0); HEMATOCRIT 27.5 % (37.0-47.0); HEMOGLOBIN 8.7 g/dl (12.0-16.0); LYMPH # 2.1 10*3/uL (1.3-4.4); LYMPH % 25.2 % (27.0-41.0); MEAN CELL VOLUME 82.1 fl (81.0-99.0); MEAN CORPUSCULAR HGB CONC 31.6 g/dl (33.0-37.0); MEAN PLATELET VOLUME 10.2 fl (9.6-12.3); MONO # 0.6 10*3/uL (0.1-1.0); MONO % 7.6 % (3.0-9.0); NEUT # 5.3 10*3/uL (2.3-7.9); NEUT % 64.5 % (47.0-73.0); PLATELET COUNT AUTOMATED 193 10*3/uL (130-400); RED BLOOD COUNT 3.35 10*6/uL (4.10-5.10); RED CELL DISTRI WIDTH 14.6 % (0-14.5); WHITE BLOOD COUNT 8.2 10*3/uL (4.8-10.8)
[2017-05-30 12:34] LABS: BILIRUBIN NEGATIVE (NEGATIVE); BLOOD NEGATIVE (NEGATIVE); CLARITY SL CLOUDY (CLEAR); COLOR YELLOW (YELLOW); GLUCOSE TRACE (NEGATIVE); KETONE NEGATIVE (NEGATIVE); LEUKO ESTERASE NEGATIVE (NEGATIVE); NITRITE NEGATIVE (NEGATIVE); PH 5.5 (5.0-9.0); SPECIFIC GRAVITY <= 1.005 (1.005-1.030); UROBILINOGEN 0.2 E.U./dl (0.2-1.0)
[2017-05-30 12:51] LABS: ALBUMIN 2.1 gm/dl (3.1-4.5); CREATININE 2.06 mg/dL (0.55-1.02); PHOSPHOROUS 3.2 mg/dL (2.5-4.9); POTASSIUM 4.4 mmol/L (3.5-5.1); TOTAL PROTEIN 6.7 gm/dL (6.4-8.2)
[2017-05-30 13:10] LABS: FERRITIN 15.5 ng/mL (10.0-291.0); PTH INTACT 108.1 pg/mL (14.0-72.0); VITAMIN D, 25-HYDROXY 16.8 ng/mL (30-100)
[2017-05-30 13:33] LABS: BACTERIA 2+
== END | disposition home or self-care (01) ==
LOC: LAB 11:53
PROVIDERS: Internal Medicine Nephrology
DX: N18.3 Chronic kidney disease, stage 3 (moderate) (principal); D63.1 Anemia in chronic kidney disease; N25.81 Secondary hyperparathyroidism of renal origin; Z94.4 Liver transplant status; Z79.899 Other long term (current) drug therapy

== ENCOUNTER 2017-07-21 11:17 | Inpatient (IN) | payer BC, MEDICARE ==
[2017-07-21] VITALS (10 sets, daily range): BP systolic 121–163; BP diastolic 71–83
[~2017-07-21] VITALS: Ht 163.8 cm; Wt 54.7 kg
--- NOTE | ~2017-07-21 | WRIGHTHP ---
[place], [place] PATIENT HISTORY AND PHYSICAL EXAM NAME: KVNG RIVERO [facility] #: [id number] UNIT #: [id number] ROOM: [place] [address] DOCTOR: JARED CHURCHILL MD BIRTHDATE: [birth year] DOS: 07/21/2017 HISTORY OF PRESENT ILLNESS: This patient is 57 years old. The patient is very well known to us. She is quite sleepy this morning, not able to tell me exactly what happened, but her blood sugar was too high to read on the monitor, so her brought her to the Emergency Room. She does not have any complaints of chest pains, palpitations, shortness of breath. Does not have any fever or chills, does not have any abdominal pain, nausea, emesis. She has been increasingly tired for the last few days. The patient claims that she is taking her insulin. PAST MEDICAL HISTORY: Significant for: 1. Brittle diabetes type 2. 2. Chronic low back pain. 3. History of liver transplant more than 20 years ago. 4. Alcoholic liver disease. 5. Hepatorenal syndrome. 6. Chronic rejection diabetic gastroparesis. 7. Major depression, moderate, recurrent. MEDICATIONS: She is currently on are oxycodone 10 b.i.d.; Protonix 40 daily; spironolactone 50 daily; Prograf 1 mg twice a day; NovoLog 70/30, 14 units in the morning and 14 units in the evening; Remeron 30 at bedtime; Reglan 5 b.i.d.; Lasix 20 daily; duloxetine 60 daily; Megace 4 mL twice a day. SOCIAL HISTORY: Smoker of about half pack of cigarettes a day. Denies using any alcohol. PHYSICAL EXAMINATION: GENERAL: She is awake and alert and oriented. VITAL SIGNS: Blood pressure is 153/80, pulse of 95, respirations 17, temperature 98.5. LUNGS: Diminished breath sounds. No wheezes, rales, rhonchi heard. HEART: Regular. ABDOMEN: Soft, scaphoid. EXTREMITIES: Without any edema. LABORATORY DATA: Shows a WBC count of 7.1, hemoglobin 6.9, hematocrit 21.6, platelets 154. Ammonia 25. Magnesium 1.8. Comprehensive glucose 826, BUN 46, creatinine 2.46, sodium 124, potassium 4.2, chloride 90. ASSESSMENT AND PLAN: 1. Type 2 diabetes mellitus, insulin-dependent, poorly controlled with hyperosmolar coma. The patient has been admitted. IV fluids have been started. Since her sugars had a hard time coming down below 800, a load on an insulin drip was ordered for a few hours. 2. Chronic kidney disease. IV fluids have been ordered. Repeat labs have been ordered. 3. Anemia. Iron, B12 and folic acid levels were ordered. Unfortunately, they were not done before transfusion was given. This most likely is anemia of [place], [place] PATIENT HISTORY AND PHYSICAL EXAM NAME: KVNG RIVERO UNIT #: [id number] ROOM: [place] [address] DOCTOR: JARED CHURCHILL MD BIRTHDATE: [birth year] chronic disease from the hepatorenal syndrome. We will discontinue Lasix, decrease the dose of Aldactone before discharge. JARED CHURCHILL MD CM:HISPHYS:PATIENT HISTORY AND PHYSICAL EXAMINATION [id number] JARED CHURCHILL MD 07/22/17 0743 interface
--- NOTE | ~2017-07-21 | PR ---
[place], [place] PROGRESS NOTE [id number] UN[facility] #: [id number] ROOM: [place] [address] DOCTOR: JARED CHURCHILL MD BIRTHDATE: [birth year] DOS: SUBJECTIVE: The patient is resting comfortably, does not have any complaints. Denies any chest pains, palpitations or shortness of breath. OBJECTIVE: GENERAL: She is awake and alert and oriented. VITAL SIGNS: Graphic trend shows blood pressure of 164/98, pulse is 67, respirations 18, temperature 97.5. LUNGS: Clear. HEART: Regular. ABDOMEN: Soft, scaphoid. EXTREMITIES: Without any edema. ASSESSMENT AND PLAN: 1. Type 2 diabetes mellitus, insulin-dependent, poorly controlled with hyperosmolar state. The patient was placed on IV fluids yesterday and the sugars have been in the low 100s. We will discontinue IV fluids, transfer her [place] [facility]. 2. Adult failure to thrive. The patient to have a PT, OT evaluation to see whether she would require a skilled placement. 3. Acute hepatorenal syndrome with history of renal transplant. Avoid nephrotoxic medications. 4. Benign hypertension. The patient's blood pressure has a tendency to drop pretty low, resulting in acute tubular necrosis. A low dose Norvasc was started because of the climbing pressures. JARED CHURCHILL MD CM:PNTRANS [id number] JARED CHURCHILL MD 07/23/17 1032 interface
--- NOTE | ~2017-07-21 | EKG ---
[place], [place] ELECTROCARDIOGRAM REPORT NAME: KVNG RIVERO UNIT #: [id number] ROOM: [place] [address] DOCTOR: CRYSTAL DIEZ,DOREEN BIRTHDATE: [birth year] DOS: 07/21/2017 TIME: 12:42. IMPRESSION: 1. Sinus rhythm. 2. Normal QT interval. 3. Baseline artifacts. DOREEN ROJAS MD CM:EKGRPT:ELECTROCARDIOGRAM REPORT [id number] DOREEN ROJAS MD
--- NOTE | ~2017-07-21 | DS ---
[place], [place] DISCHARGE SUMMARY NAME: KVNG RIVERO [facility] #: [id number] UNIT #: [id number] ROOM: 404 DOCTOR: JARED CHURCHILL MD BIRTHDATE: [birth year] DOS: 07/24/2017 DISCHARGE DIAGNOSES: 1. Type 2 diabetes mellitus, poorly controlled, with hyperosmolar state. 2. Acute kidney injury in a patient with chronic kidney disease stage IV. 3. Adult failure to thrive, refuses snf placement as well as home PT/OT. 4. Benign hypertension. 5. History of liver transplant for alcoholic liver disease with chronic rejection. 6. Diabetic gastroparesis. 7. Major depression, moderate, recurrent. DISCHARGE MEDICATIONS: Amlodipine 2.5 mg daily, Cymbalta 60 daily, Remeron 30 at bedtime, Protonix 40 daily, vitamin D 50,000 on Mondays, 70/30 insulin 14 units twice a day, Megace 4 mL twice a day, metoclopramide 5 b.i.d., oxycodone 10 b.i.d., Prograf 1 mg twice a day. Her diuretics were discontinued. HOSPITAL COURSE: The patient is 57-year-old, presents with extreme elevation in blood sugars in the 800s. After being evaluated in the ER, she was admitted with diagnosis of hyperosmolar state. The patient was started on IV fluids. The blood sugars did not come down below 800 for several hours, so low dose insulin drip had to be started. Spironolactone, Lasix were discontinued. Blood sugars were starting to go up, so we did restart a very low dose of amlodipine. The patient appeared quite weak and tired and recommended PT/OT. PT did feel that the patient would benefit from rehab, but she refuses. They also suggested visiting nurses, but she refuses. Her blood sugars are now in the 200s. She will be restarted on her insulin. She also was quite anemic. Blood transfusion was given. B12 and folic acid were ordered, which were normal. Iron was 95, so this most likely is anemia of chronic disease from underlying renal failure. The patient is relatively stable and will be discharged, but unfortunately she is refusing to go to rehabilitation. Plan is to follow up as an outpatient. [place], [place] DISCHARGE SUMMARY NAME: KVNG RIVERO UNIT #: [id number] ROOM: 404 DOCTOR: JARED CHURCHILL MD BIRTHDATE: [birth year] JARED CHURCHILL MD CM:EARLE JARED CHURCHILL MD 07/24/1746 interface
--- NOTE | ~2017-07-21 | PR ---
[place], [place] PROGRESS NOTE [facility] [id number] UNIT #: [id number] ROOM: 404 DOCTOR: JARED CHURCHILL MD BIRTHDATE: [birth year] DOS: 07/24/2017 SUBJECTIVE: The patient states that she feels good and is not having any complaints today. OBJECTIVE: VITAL SIGNS: Graphic trend shows a pressure of 123/69, pulse of 88, respirations 20, temperature 98.0. LUNGS: Clear. HEART: Regular. ABDOMEN: Soft, scaphoid. EXTREMITIES: Without any edema. LABORATORY DATA: Urine culture shows no bacterial growth. No labs available this morning. ASSESSMENT AND PLAN: 1. Type 2 diabetes mellitus, insulin-dependent with hyperosmolar state, which has resolved. 2. Chronic kidney disease with acute kidney injury from dehydration, which is corrected. Aldactone and Lasix have been discontinued. 3. Benign hypertension. A low dose of Norvasc was added. 4. Adult failure to thrive. The patient has refused [facility] placement as well as home PT, OT. The plan is to discharge to home today. JARED CHURCHILL MD CM:PNTRANS [id number] JARED CHURCHILL MD 07/24/17 0852 interface
[~2017-07-21 11:17] MED LIST changes: -CYMBALTA30 MG PO; +CYMBALTA60 MG PO
[2017-07-21 12:02] LABS: BASO % 0.1 % (0.0-1.0); EOS % 0.6 % (1.0-4.0); HEMATOCRIT 21.6 % (37.0-47.0); HEMOGLOBIN 6.9 g/dl (12.0-16.0); LYMPH # 1.3 10*3/uL (1.3-4.4); MEAN CELL VOLUME 82.4 fl (81.0-99.0); MEAN CORPUSCULAR HGB 26.3 pg (27.0-31.0); MEAN CORPUSCULAR HGB CONC 31.9 g/dl (33.0-37.0); MEAN PLATELET VOLUME 11.1 fl (9.6-12.3); MONO # 0.5 10*3/uL (0.1-1.0); MONO % 7.3 % (3.0-9.0); NEUT # 5.2 10*3/uL (2.3-7.9); NEUT % 73.4 % (47.0-73.0); PLATELET COUNT AUTOMATED 154 10*3/uL (130-400); RED BLOOD COUNT 2.62 10*6/uL (4.10-5.10); RED CELL DISTRI WIDTH 18.1 % (0-14.5); WHITE BLOOD COUNT 7.1 10*3/uL (4.8-10.8)
[2017-07-21 12:16] LABS: ACT PARTIAL THROMBO TIME 23.4 SECONDS (20.8-31.5); INTERNATIONAL NORM RATIO 1.3 (2.0-3.5)
[2017-07-21 12:19] LABS: CREATININE 2.46 mg/dL (0.55-1.02); POTASSIUM 4.2 mmol/L (3.5-5.1); TOTAL PROTEIN 5.8 gm/dL (6.4-8.2)
[2017-07-21 12:51] LABS: TROPONIN I 0.073 ng/ml (<0.045)
[2017-07-21] MEDS ORDERED: VITAMIN D350000 UNIT PO (13:44)
[2017-07-21] MEDS ORDERED: NOVOLOG MI100 UNIT/1 SC (13:46)
[2017-07-21] MEDS ORDERED: MEGACE 40400 MG/10 PO (13:47)
[2017-07-21] MEDS ORDERED: REGLAN5 MG PO (13:48)
[2017-07-21] MEDS ORDERED: OXYCODONE HCL10 M1 PO (13:49)
[2017-07-21] MEDS ORDERED: LASIX20 MG PO (13:49)
[2017-07-21] MEDS ORDERED: ALDACTONE50 M1 PO (13:49)
[2017-07-21] MEDS ORDERED: PROGRAF0.5 MG PO (13:50)
[2017-07-21 21:23] LABS: BILIRUBIN NEGATIVE (NEGATIVE); BLOOD TRACE-INTACT (NEGATIVE); CLARITY CLEAR (CLEAR); COLOR YELLOW (YELLOW); GLUCOSE 3+ (NEGATIVE); KETONE NEGATIVE (NEGATIVE); LEUKO ESTERASE NEGATIVE (NEGATIVE); NITRITE NEGATIVE (NEGATIVE); PH 5.5 (5.0-9.0); SPECIFIC GRAVITY 1.015 (1.005-1.030); UROBILINOGEN 0.2 E.U./dl (0.2-1.0)
[2017-07-21 21:37] LABS: BACTERIA TRACE; RBC 0-2 rbc/hpf (0-2); WBC 0-2 wbc/hpf (0-5)
[2017-07-22] VITALS: BP 140/78
[2017-07-22 04:00] VITALS: BP 153/80
[2017-07-22 06:38] LABS: ALBUMIN 1.7 gm/dl (3.1-4.5); POTASSIUM 3.6 mmol/L (3.5-5.1); TOTAL PROTEIN 5.2 gm/dL (6.4-8.2)
[2017-07-22 06:39] LABS: CREATININE 2.05 mg/dL (0.55-1.02)
[2017-07-22 08:00] VITALS: BP 152/95
[2017-07-22 08:07] LABS: HEMATOCRIT 25.6 % (37.0-47.0); MEAN CORPUSCULAR HGB 27.7 pg (27.0-31.0); MEAN CORPUSCULAR HGB CONC 35.5 g/dl (33.0-37.0); MEAN PLATELET VOLUME 11.1 fl (9.6-12.3); PLATELET COUNT AUTOMATED 112 10*3/uL (130-400); RED BLOOD COUNT 3.29 10*6/uL (4.10-5.10); RED CELL DISTRI WIDTH 17.1 % (0-14.5)
[2017-07-22 08:08] LABS: HEMOGLOBIN 9.1 g/dl (12.0-16.0); MEAN CELL VOLUME 77.8 fl (81.0-99.0)
[2017-07-22 08:32] LABS: MICROCYTOSIS SLIGHT; PLATELET SUFFICIENCY LOW (NORMAL); POLYCHROMASIA SLIGHT; SCHISTOCYTES FEW; TOTAL CELLS COUNTED 100 #CELLS
[2017-07-22 12:00] VITALS: BP 148/88
[2017-07-22 16:00] VITALS: BP 152/85
[2017-07-22 20:00] VITALS: BP 144/76
[2017-07-23] VITALS: BP 151/90
[2017-07-23 04:00] VITALS: BP 140/74
[2017-07-23 05:43] LABS: CREATININE 2.06 mg/dL (0.55-1.02); POTASSIUM 3.7 mmol/L (3.5-5.1)
[2017-07-23 05:48] LABS: BASO % 0.2 % (0.0-1.0); EOS # 0.1 10*3/uL (0.0-0.4); EOS % 0.6 % (1.0-4.0); HEMATOCRIT 27.8 % (37.0-47.0); HEMOGLOBIN 9.2 g/dl (12.0-16.0); LYMPH # 1.4 10*3/uL (1.3-4.4); MEAN CORPUSCULAR HGB 27.3 pg (27.0-31.0); MEAN CORPUSCULAR HGB CONC 33.1 g/dl (33.0-37.0); MONO # 0.7 10*3/uL (0.1-1.0); MONO % 8.1 % (3.0-9.0); NEUT # 6.4 10*3/uL (2.3-7.9); NEUT % 74.7 % (47.0-73.0); PLATELET COUNT AUTOMATED 144 10*3/uL (130-400); RED BLOOD COUNT 3.37 10*6/uL (4.10-5.10); RED CELL DISTRI WIDTH 17.7 % (0-14.5); WHITE BLOOD COUNT 8.5 10*3/uL (4.8-10.8)
[2017-07-23 06:00] LABS: MEAN CELL VOLUME 82.5 fl (81.0-99.0)
[2017-07-23 08:00] VITALS: BP 164/98
[2017-07-23 12:07] VITALS: BP 157/88
[2017-07-23 16:00] VITALS: BP 145/84
[2017-07-23 20:00] VITALS: BP 139/78
[2017-07-24] VITALS: BP 123/69
[2017-07-24 08:00] VITALS: BP 158/96
[2017-07-24] MEDS ORDERED: NORVASC2.5 MG PO (08:31)
== END 2017-07-24 10:23 | disposition home or self-care (01) | DRG 682 ==
LOC: ED 11:17 → EDHOLD 12:48 → ICCU 12:48 → 4E 07-23 13:56
PROVIDERS: Internal Medicine; Nurse Practitioner Family
PROC: 30233N1 Transfusion of Nonautologous Red Blood Cells into Peripheral Vein, Percutaneous Approach (ICD-10-PCS; principal; 2017-07-21)
DX: N17.9 Acute kidney failure, unspecified (principal); E11.00 Type 2 diabetes mellitus with hyperosmolarity without nonketotic hyperglycemic-hyperosmolar coma (NKHHC); K76.7 Hepatorenal syndrome; T86.40 Unspecified complication of liver transplant; E46 Unspecified protein-calorie malnutrition; K92.2 Gastrointestinal hemorrhage, unspecified; F33.1 Major depressive disorder, recurrent, moderate; N18.4 Chronic kidney disease, stage 4 (severe); K70.9 Alcoholic liver disease, unspecified; E11.22 Type 2 diabetes mellitus with diabetic chronic kidney disease; E86.0 Dehydration; K31.84 Gastroparesis; M54.5 Low back pain; R62.7 Adult failure to thrive; G89.29 Other chronic pain; E11.43 Type 2 diabetes mellitus with diabetic autonomic (poly)neuropathy; F17.210 Nicotine dependence, cigarettes, uncomplicated; D63.1 Anemia in chronic kidney disease; I12.9 Hypertensive chronic kidney disease with stage 1 through stage 4 chronic kidney disease, or unspecified chronic kidney disease; E11.65 Type 2 diabetes mellitus with hyperglycemia; Z79.899 Other long term (current) drug therapy; Z79.4 Long term (current) use of insulin; Z90.49 Acquired absence of other specified parts of digestive tract; Z80.9 Family history of malignant neoplasm, unspecified

== ENCOUNTER 2017-07-31 20:41 | Emergency (ER) | payer BC, MEDICARE ==
[~2017-07-31] VITALS: Ht 162.5 cm; Wt 54.4 kg
[~2017-07-31 20:41] MED LIST changes: +ALDACTONE50 M1 PO; +LASIX20 MG PO; +NOVOLOG MI100 UNIT/1 SC; +OXYCODONE HCL10 M1 PO; +PROGRAF0.5 MG PO; +VITAMIN D350000 UNIT PO
[2017-07-31 21:26] LABS: ACT PARTIAL THROMBO TIME 24.8 SECONDS (20.8-31.5); INTERNATIONAL NORM RATIO 1.3 (2.0-3.5)
[2017-07-31 21:35] LABS: MEAN CELL VOLUME 86.2 fl (81.0-99.0); MEAN CORPUSCULAR HGB 28.1 pg (27.0-31.0); MEAN CORPUSCULAR HGB CONC 32.6 g/dl (33.0-37.0); MEAN PLATELET VOLUME 11.1 fl (9.6-12.3); PLATELET COUNT AUTOMATED 179 10*3/uL (130-400); RED BLOOD COUNT 2.03 10*6/uL (4.10-5.10); RED CELL DISTRI WIDTH 16.9 % (0-14.5); WHITE BLOOD COUNT 9.7 10*3/uL (4.8-10.8)
[2017-07-31 21:38] LABS: HEMOGLOBIN 5.7 g/dl (12.0-16.0)
[2017-07-31 21:39] LABS: HEMATOCRIT 17.5 % (37.0-47.0)
[2017-07-31 21:53] LABS: ALBUMIN 1.7 gm/dl (3.1-4.5); BURR CELLS FEW; CREATININE 2.99 mg/dL (0.55-1.02); PLATELET SUFFICIENCY NORMAL (NORMAL); POTASSIUM 5.9 mmol/L (3.5-5.1); TOTAL CELLS COUNTED 100 #CELLS; TOTAL PROTEIN 5.1 gm/dL (6.4-8.2)
[2017-07-31 21:56] LABS: TROPONIN I 0.148 ng/ml (<0.045)
[2017-08-01 01:21] VITALS: BP 114/66
== END 2017-08-01 03:31 | disposition short-term general hospital (02) ==
LOC: ED 20:41
PROVIDERS: Student in an Organized Health Care Education/Training Program
DX: K92.2 Gastrointestinal hemorrhage, unspecified (principal); E11.00 Type 2 diabetes mellitus with hyperosmolarity without nonketotic hyperglycemic-hyperosmolar coma (NKHHC); E87.5 Hyperkalemia; E83.51 Hypocalcemia; I12.9 Hypertensive chronic kidney disease with stage 1 through stage 4 chronic kidney disease, or unspecified chronic kidney disease; E11.22 Type 2 diabetes mellitus with diabetic chronic kidney disease; N18.9 Chronic kidney disease, unspecified; F17.210 Nicotine dependence, cigarettes, uncomplicated; Z98.890 Other specified postprocedural states; Z90.49 Acquired absence of other specified parts of digestive tract; Z94.4 Liver transplant status; Z79.899 Other long term (current) drug therapy; Z79.4 Long term (current) use of insulin; Z79.82 Long term (current) use of aspirin

== ENCOUNTER 2017-08-21 19:23 | Inpatient (IN) | payer BC, MEDICARE ==
[2017-08-21] VITALS (11 sets, daily range): BP systolic 111–127; BP diastolic 67–82
[~2017-08-21] VITALS: Ht 162.6 cm; Wt 68.6 kg
--- NOTE | ~2017-08-21 | PR ---
[place], [place] PROGRESS NOTE [id number] UNIT #: [id number] ROOM: 532 DOCTOR: JARED CHURCHILL MD BIRTHDATE: [birth year] DOS: SUBJECTIVE: The patient is doing fine without any complaints. The diarrhea seems to have finally quit. PHYSICAL EXAMINATION: VITAL SIGNS: Blood pressure is 142/89, pulse of 94, respirations 20, temperature 98.7. LUNGS: Diminished breath sounds, clear. HEART: Regular. ABDOMEN: Soft. EXTREMITIES: Trace edema bilaterally. ASSESSMENT AND PLAN: 1. End-stage renal failure, on dialysis. 2. Anemia of chronic disease, status post transfusion with stable counts. 3. C. diff diarrhea on medications. 4. Adult failure to thrive, has been accepted at the [facility], plans to transfer today. JARED CHURCHILL MD CM:PNTRANS [id number] JARED CHURCHILL MD 08/29/17 0401 interface
--- NOTE | ~2017-08-21 | WRIGHTHP ---
[place], [place] PATIENT HISTORY AND PHYSICAL EXAM NAME: KVNG RIVERO [facility] #: [id number] UNIT #: [id number] ROOM: 505 DOCTOR: JARED CHURCHILL MD BIRTHDATE: [birth year] DOS: 08/21/2017 HISTORY OF PRESENT ILLNESS: This patient is 57 years old. The patient is very well known to us. She was brought into the Emergency Room with a hemoglobin of 6.8. The patient was last seen in the Emergency Room on July 31 with acute renal failure, dizziness and weakness. She was transferred to [facility] where she underwent evaluation, no details available and she also was started on dialysis there. From there, she was transferred to [facility] for physical therapy on . She presented with severe multiple episodes of diarrhea. C. diff titer was sent from the residential. This came back negative and the patient continued to be about the same, but was transferred to hospital yesterday because a routine blood work showed a hemoglobin of 6.9. There was no active bleeding noticed except for the acute continued diarrhea. She denied having any chest pains, palpitations. Does have chronic abdominal pain, does not have any nausea, any emesis, any fever or chills. PAST MEDICAL HISTORY: Significant for: 1. Type 2 diabetes mellitus, poorly controlled. 2. Multiple hospitalizations for hyperosmolar state. 3. Chronic liver transplant with chronic rejection. 4. Hepatorenal syndrome with acute renal failure, on dialysis. 5. Failure to thrive. 6. Major depression, moderate, recurrent. 7. Diarrhea of unknown etiology. 8. Benign hypertension. In the past, the patient's iron level was normal and anemia was thought to be related to anemia of chronic disease. MEDICATIONS: She is currently on are, she is not taking any of her home medications, but I see a list of meds in her, which included metronidazole, MiraLax, Flagyl, doxycycline, amoxicillin and Biaxin as well as Pepto-Bismol. SOCIAL HISTORY: Nonsmoker, does not use any alcohol. PHYSICAL EXAMINATION: GENERAL: The patient is awake and alert and oriented. VITAL SIGNS: Shows the pressure of 131/75, pulse of 78, respirations 16, temperature 98.3. LUNGS: Diminished breath sounds. No wheezes, rales or rhonchi heard. HEART: Regular. ABDOMEN: Soft, diffuse tenderness in the lower quadrants. EXTREMITIES: About 1-2+ pitting edema. ASSESSMENT AND PLAN: 1. The patient may have antibiotic-induced diarrhea. Discussed with Dr. Strauss, will hopefully hold off on all antibiotics. C. diff titers, that was done on the 2nd came back negative. Dr. Strauss to take her for an endoscopy today. 2. Chronic kidney disease with end-stage on dialysis. Dr. Cesar has been consulted. 3. Anemia. In the past, she had anemia of chronic disease, the iron, B12 and folic acid levels have ordered during the night and they are still pending. [place], [place] PATIENT HISTORY AND PHYSICAL EXAM NAME: KVNG RIVERO UNIT #: [id number] ROOM: [facility] DOCTOR: JARED CHURCHILL MD BIRTHDATE: [birth year] Transfusion has been ordered. 4. History of benign hypertension. Hold off on antihypertensives right now. JARED CHURCHILL MD CM:HISPHYS:PATIENT HISTORY AND PHYSICAL EXAMINATION [id number] JARED CHURCHILL MD 08/22/17 1351 interface
--- NOTE | ~2017-08-21 | PR ---
[place], [place] PROGRESS NOTE NAME: KVNG RIVERO [facility] #: [id number] UNIT #: [id number] ROOM: 532 DOCTOR: KEE LUCIANO MD BIRTHDATE: [birth year] DOS: 08/26/2017 SUBJECTIVE: The patient says her diarrhea has slowed down and she is feeling better. OBJECTIVE: VITAL SIGNS: Blood pressure 152/87, heart rate 87 beats per minute, breathing 18 times per minute, temperature 98.7 degrees Fahrenheit. GENERAL APPEARANCE: The patient is alert and oriented x 3, in no visible distress. Generalized weakness. HEENT AND NECK: Exam within normal limits. CARDIOVASCULAR SYSTEM: Heart rate is regular in rate and rhythm. S1 and S2 normally audible. LUNGS: Clear to auscultation. ABDOMEN: Soft, nontender. No obvious organomegaly. Bowel sounds are present. EXTREMITIES: Without significant cyanosis or edema. IMPRESSION: 1. Diarrhea with Clostridium diff toxin negative. Diarrhea has slowed down. 2. Type 2 diabetes mellitus, very brittle diabetic with blood sugars going from very low to very being, are being monitored and treated. The patient remains on insulin. 3. Anemia of chronic disease, status post blood transfusion. I will repeat her blood counts in the morning. 4. The patient waiting for transfer to care home facility. The paperwork is still not complete and approved, so patient still remains at the hospital. 5. End-stage kidney disease and kidney failure. The patient remains on hemodialysis. 6. Benign essential hypertension. Blood pressure being monitored and treated. KEE LUCIANO MD CM:PNTRANS [id number] KEE LUCIANO MD 08/26/17 1731 interface
--- NOTE | ~2017-08-21 | PR ---
[place], [place] PROGRESS NOTE NAME: KVNG RIVERO [facility] #: [id number] UNIT #: [id number] ROOM: 505 DOCTOR: JARED CHURCHILL MD BIRTHDATE: [birth year] DOS: SUBJECTIVE: The patient is in dialysis this morning. During the night, she did develop some hyperglycemia with a blood sugar is going up into the 500s, was started back on her Levemir as well as coverage. OBJECTIVE: VITAL SIGNS: Blood pressure is 138/75, pulse of 85, respirations 16, temperature 97.8. LUNGS: Diminished breath sounds, clear. HEART: Regular. ABDOMEN: Soft, some diffuse tenderness is still present. EXTREMITIES: Without any edema. ASSESSMENT AND PLAN: 1. Continued abdominal pain. CT of the abdomen and pelvis will be ordered. Dilaudid as well as oxycodone was restarted. 2. Type 2 diabetes mellitus with hypoglycemia. Blood sugar this morning has come down to 117. We will continue her home medications, which is Levemir. 3. Anemia of chronic disease, status post transfusion. Hemoglobin has improved. 4. End-stage renal failure, on dialysis. The plan is to discharge her back to [facility] tomorrow. JARED CHURCHILL MD CM:PNTRANS 9 0 JARED CHURCHILL MD 08/24/1741 interface
--- NOTE | ~2017-08-21 | PR ---
[place], [place] PROGRESS NOTE NAME: KVNG RIVERO [facility] #: [id number] UNIT #: [id number] ROOM: 505 DOCTOR: JARED CHURCHILL MD BIRTHDATE: [birth year] DOS: 08/23/2017 SUBJECTIVE: The patient looks much better, does not have any complaints today. She did have three diarrheal bowel movements, but feels that the Questran is working. OBJECTIVE: VITAL SIGNS: Blood pressure is 130/80, pulse of 90, respirations 16, temperature 98.9. LUNGS: Clear. HEART: Regular. ABDOMEN: Soft, some minimal diffuse tenderness present. EXTREMITIES: Without any edema. LABORATORY DATA: Shows a glucose of 392, BUN 20, creatinine 2.81, sodium 134, potassium 4.0, chloride 104, bicarbonate 20, calcium 7.2, phosphorus 3.9, albumin 1.8. GI report shows diverticulosis. No other pathology was noted. ASSESSMENT AND PLAN: 1. The patient with significant anemia. Transfusion was ordered and the hemoglobin has come up to 9.8. This appears to be anemia of chronic disease. 2. Diarrhea of unknown etiology, possibly medication induced. The patient's C. diff titer the first one was negative. Flagyl was added along with Lactinex. The patient to continue on Questran also as an outpatient. 3. Adult failure to thrive. The plan is to discharge her to [place] tomorrow once certification is obtained. 4. Type 2 diabetes mellitus, insulin-dependent. Blood sugars are starting to go up, we will restart her home medications. JARED CHURCHILL MD CM:PNTRANS [id number] JARED CHURCHILL MD 08/23/17 2313 interface
--- NOTE | ~2017-08-21 | PR ---
[place], [place] [facility]GR[facility] NOTE [id number] UNIT #: [id number] ROOM: 532 DOCTOR: KEE LUCIANO MD BIRTHDATE: [birth year] DOS: 08/25/2017 SUBJECTIVE: The [facility]. She has no new complaints. OBJECTIVE: VITAL SIGNS: Blood pressure 155/86, heart rate 81 beats per minute, breathing 18 times per minute, temperature 98 degrees Fahrenheit. GENERAL APPEARANCE: Generalized weakness. HEENT AND NECK: Exam within normal limits. CARDIOVASCULAR SYSTEM: Heart rate is regular in rate and rhythm. S1 and S2 normally audible. LUNGS: Clear to auscultation. ABDOMEN: Soft, nontender. No obvious organomegaly. Bowel sounds are present. EXTREMITIES: Without significant cyanosis or edema. IMPRESSION: 1. The patient with chronic kidney failure, remains on hemodialysis. Stool test for Clostridium difficile toxin have been negative. 2. Type 2 diabetes mellitus. The patient is very brittle diabetic and blood sugars are varying. They are being monitored and treated. The patient remains on insulin. 3. Anemia of chronic disease, status post blood transfusion, hemoglobin improved. CT of the abdomen and pelvis did not show any acute abnormality. It did show chronic pancreatitis and fluid. KEE LUCIANO MD CM:PNTRANS 08 KEE LUCIANO MD 08/26/1738 interface
--- NOTE | ~2017-08-21 | PR ---
[place], [place] PROGRESS NOTE NAME: KVNG RIVERO [facility] #: [id number] UNIT #: [id number] ROOM: 532 DOCTOR: JARED CHURCHILL MD BIRTHDATE: [birth year] DOS: 08/27/2017 SUBJECTIVE: The patient's appetite is very poor. She hardly eats much food. Her blood sugars were dropping and the Levemir was discontinued. OBJECTIVE: VITAL SIGNS: Graphic trend shows a pressure of 149/72, pulse of 90, respirations 20, temperature 98.9. LUNGS: Diminished breath sounds. HEART: Regular. ABDOMEN: Soft. EXTREMITIES: Still about 2-3+ pitting edema. LABORATORY DATA: This morning, the lab shows a glucose of 54, BUN 24, creatinine 4, sodium 140, potassium 4.1, chloride 112, bicarbonate 16. WBC count is 7.4, hemoglobin 10.4, hematocrit 33.4. C. diff toxins have come back negative. CT of the abdomen and pelvis showed diffuse anasarca with bilateral pleural effusions, atelectasis and chronic pancreatitis. ASSESSMENT AND PLAN: 1. Anemia from anemia of chronic disease. After transfusion, the hemoglobin remained stable. 2. End-stage renal failure, on dialysis. 3. Adult failure to thrive, awaiting placement to [facility]. 4. Diarrhea, most likely related to chronic pancreatitis, Creon was added. 5. Type 2 diabetes mellitus, insulin-dependent, very brittle, she becomes hypoglycemic and ketotic pretty fast. We will try to readjust the medications today. 6. Poor appetite with major depression, already on maximal treatment plan. JARED CHURCHILL MD CM:PNTRANS [id number] JARED CHURCHILL MD 08/27/17 1511 interface
--- NOTE | ~2017-08-21 | DS ---
[place], [place] DISCHARGE SUMMARY NAME: [facility] #: [id number] UNIT #: [id number] ROOM: 532 DOCTOR: JARED CHURCHILL MD BIRTHDATE: [birth year] DOS: HOSPITAL COURSE: The patient is 57 years old, very well known to us. She was recently admitted to [facility] after being at [facility] for several weeks. On the 21 of August, the patient had routine blood work which showed a hemoglobin of 6.8, was transferred to the hospital. The patient also was having multiple episodes of diarrhea. C. diff titer done from the [facility] came back negative. After admission, the patient had a consultation with Dr. Strauss. Colonoscopy was performed. No colitis was seen. Diverticulosis was noted. The patient was given Flagyl as well as Questran and the diarrhea has slowed down. She continues to have abdominal pain, so CT of the abdomen and pelvis will be ordered without contrast. She is placed on a very low dose of oxycodone unfortunately that, she is unable to take Motrin or Tylenol. The patient has underlying type 2 diabetes mellitus, poorly controlled. She did develop hypoglycemia because she was n.p.o. and had to have her diabetic medications, put on hold. This was restarted after the colonoscopy was performed and the patient's blood sugars have come down and normalized this morning. She has end-stage renal disease and is on dialysis, followed by Dr. Grande[facility] where she will continue to receive dialysis as an outpatient. The patient's anemia is most likely iron deficiency. Iron level was normal. Ferritin was normal. The ferritin did not show any evidence of iron deficiency anemia, it more or less showed that she had anemia of chronic disease. After transfusion, the hemoglobin has come up and she has not required any further transfusions since she has not had any active bleed. Some of her home medications have been restarted and the patient should be able to go back to the [facility]. Recertification has not been obtained yet, but hopefully she can be discharged on Sunday morning. 08/24/2017 ADDENDUM HOSPITAL COURSE: The patient is very well known to her. She was initially admitted to the hospital with severe anemia. After transfusion, the count has come up and has remained stable. She has anemia of chronic disease. She is found to have chronic diarrhea. Multiple C. diff titers done here have come back negative, but I did get report from [facility] that the patient did have C. diff positive while there, so she started back on Flagyl. Diarrhea has finally resolved and is not having any new problems. She did receive dialysis during the last few days. Her blood sugars have been on the low side and the Levemir dosage will be cut back, but she has a tendency to develop hyperglycemia and DKA, so we will continue medications and not discontinue them. The patient is stable this morning, plan is to discharge. DISCHARGE MEDICATIONS: Metronidazole 250 mg q. 6 for 1 week, 250 mg t.i.d. for 1 week, 250 mg twice daily for 1 week and then discontinue; oxycodone 5 mg b.i.d. p.r.n. for back pain; Tylenol 650 p.o. twice a day p.r.n. for back pain; duloxetine 60 daily; Remeron 15 at bedtime; Megace 400 mg b.i.d.; NovoLog 6 [place], [place] DISCHARGE SUMMARY NAME: [facility] #: [id number] UNIT #: [id number] ROOM: [facility] DOCTOR: JARED CHURCHILL MD BIRTHDATE: [birth year] units regular units 3 times a day with meals; vitamin D 50,000 units weekly on Mondays; Prograf 1 mg b.i.d.; Lactinex 1 tablet daily; Lantus 6 units at 5:00 p.m., and Pepcid 20 mg daily. JARED CHURCHILL MD CM:DISCHARG [id number] JARED CHURCHILL MD 08/28/17 1218 interface
--- NOTE | ~2017-08-21 | O ---
[place], [place] OPERATIVE NOTE NAME: KVNG RIVERO UNIT #: [id number] ROOM: 505 DOCTOR: TIMOTEO DIEZ,PATRICIA BIRTHDATE: [birth year] DOS: 08/22/2017 GASTROENDOSCOPIC REPORT INDICATIONS: The patient has presented with multiple problems, among which has been persistent diarrhea. The patient has been on 4 antibiotics from apparently few days ago when she was in [facility] and details not known for what this antibiotic has been continued. I have been asked for assessment of the colon. The patient has been C. diff assessed, data has not been available, this has done at care home. PAST MEDICAL HISTORY: Also hypertension, chronic renal failure, status post liver transplant ____ diabetes mellitus, and renal failure, dialysis dependent. PROCEDURE: Today's procedure part of investigation is colonoscopy. PREMEDICATION: Versed and Diprivan. SCOPE: Olympus forward-viewing colonoscope 10L video. REPORT: After putting the patient in left lateral position and application of lubricant to the scope, scope was introduced. Thereafter, under direct visualization, I advanced through the length of colon without difficulty. Base of the cecum explored, appendiceal orifice identified. No acute pathology except diverticulosis seen. The patient extubated and tolerated the procedure well. IMPRESSION: Diverticulosis, antibiotic-induced diarrhea. PLAN AND DISCUSSION: We are going to use Questran 1 pack b.i.d. to be mixed with 1 ounce of water and we will clinically reassess. Awaiting for further studies. PATRICIA MAHMOOD MD CM:OPRECORD:OPERATIVE NOTE [id number] PATRICIA MAHMOOD MD 08/22/17 1457 interface
[2017-08-21 19:51] LABS: BASO % 0.4 % (0.0-1.0); EOS % 0.8 % (1.0-4.0); HEMATOCRIT 20.5 % (37.0-47.0); HEMOGLOBIN 6.2 g/dl (12.0-16.0); LYMPH # 1.4 10*3/uL (1.3-4.4); LYMPH % 29.1 % (27.0-41.0); MEAN CELL VOLUME 95.8 fl (81.0-99.0); MEAN CORPUSCULAR HGB CONC 30.2 g/dl (33.0-37.0); MEAN PLATELET VOLUME 9.8 fl (9.6-12.3); MONO # 0.6 10*3/uL (0.1-1.0); MONO % 11.4 % (3.0-9.0); NEUT # 2.8 10*3/uL (2.3-7.9); NEUT % 57.9 % (47.0-73.0); PLATELET COUNT AUTOMATED 161 10*3/uL (130-400); RED BLOOD COUNT 2.14 10*6/uL (4.10-5.10); RED CELL DISTRI WIDTH 17.5 % (0-14.5); WHITE BLOOD COUNT 4.8 10*3/uL (4.8-10.8)
[2017-08-21 20:02] LABS: ACT PARTIAL THROMBO TIME 26.3 SECONDS (20.8-31.5); INTERNATIONAL NORM RATIO 1.1 (2.0-3.5)
[2017-08-21 20:07] LABS: ALBUMIN 1.8 gm/dl (3.1-4.5); CREATININE 2.99 mg/dL (0.55-1.02); POTASSIUM 4.9 mmol/L (3.5-5.1); TOTAL PROTEIN 5.3 gm/dL (6.4-8.2); TROPONIN I 0.034 ng/ml (<0.045)
[2017-08-22] VITALS (18 sets, daily range): BP systolic 113–140; BP diastolic 62–84
[2017-08-22] MEDS ORDERED: LANTUS SOL100 UNIT/1 SC (05:14)
[2017-08-22 07:32] LABS: MEAN CORPUSCULAR HGB 29.5 pg (27.0-31.0); MEAN PLATELET VOLUME 9.9 fl (9.6-12.3); RED BLOOD COUNT 3.32 10*6/uL (4.10-5.10); RED CELL DISTRI WIDTH 16.5 % (0-14.5)
[2017-08-22 07:41] LABS: CREATININE 3.24 mg/dL (0.55-1.02); POTASSIUM 5.6 mmol/L (3.5-5.1)
[2017-08-22 07:47] LABS: HEMATOCRIT 30.6 % (37.0-47.0); HEMOGLOBIN 9.8 g/dl (12.0-16.0); MEAN CELL VOLUME 92.2 fl (81.0-99.0); PLATELET COUNT AUTOMATED 104 10*3/uL (130-400)
[2017-08-22 07:50] LABS: BURR CELLS MODERATE; PLATELET SUFFICIENCY LOW (NORMAL); POLYCHROMASIA SLIGHT; TOTAL CELLS COUNTED 100 #CELLS
[2017-08-22 08:55] LABS: FERRITIN 37.8 ng/mL (10.0-291.0)
[2017-08-23] VITALS: BP 121/66
[2017-08-23 06:14] LABS: RBC, FOLATE HEMATOCRIT 28.9 % (34.0-46.6)
[2017-08-23 07:12] LABS: ALBUMIN 1.8 gm/dl (3.1-4.5); CREATININE 2.81 mg/dL (0.55-1.02); PHOSPHOROUS 3.9 mg/dL (2.5-4.9)
[2017-08-23 08:00] VITALS: BP 130/80
[2017-08-23 11:22] LABS: BASO % 0.6 % (0.0-1.0); EOS % 0.8 % (1.0-4.0); HEMATOCRIT 30.6 % (37.0-47.0); HEMOGLOBIN 9.8 g/dl (12.0-16.0); LYMPH % 19.9 % (27.0-41.0); MEAN CELL VOLUME 91.1 fl (81.0-99.0); MEAN CORPUSCULAR HGB 29.2 pg (27.0-31.0); MEAN PLATELET VOLUME 9.5 fl (9.6-12.3); MONO # 0.7 10*3/uL (0.1-1.0); MONO % 13.3 % (3.0-9.0); NEUT # 3.3 10*3/uL (2.3-7.9); RED BLOOD COUNT 3.36 10*6/uL (4.10-5.10); RED CELL DISTRI WIDTH 16.2 % (0-14.5)
[2017-08-23 11:24] LABS: PLATELET COUNT AUTOMATED 148 10*3/uL (130-400)
[2017-08-23 12:00] VITALS: BP 130/72
[2017-08-23 16:00] VITALS: BP 134/76
[2017-08-23 18:02] LABS: CREATININE 3.12 mg/dL (0.55-1.02); POTASSIUM 4.6 mmol/L (3.5-5.1)
[2017-08-23 20:00] VITALS: BP 140/79
[2017-08-24] VITALS: BP 138/75
[2017-08-24 06:42] LABS: CREATININE 3.14 mg/dL (0.55-1.02)
[2017-08-24] MEDS ORDERED: PROTONIX40 MG PO (08:32)
[2017-08-24] MEDS ORDERED: QUESTRAN LIGHT4 GM PO (08:32)
[2017-08-24] MEDS ORDERED: LACTINEX 0.2 MG1 TAB PO (08:32)
[2017-08-24 09:12] LABS: BASO % 0.3 % (0.0-1.0); EOS # 0.1 10*3/uL (0.0-0.4); EOS % 1.2 % (1.0-4.0); HEMATOCRIT 27.5 % (37.0-47.0); HEMOGLOBIN 8.9 g/dl (12.0-16.0); LYMPH # 1.1 10*3/uL (1.3-4.4); LYMPH % 18.8 % (27.0-41.0); MEAN CELL VOLUME 88.4 fl (81.0-99.0); MEAN CORPUSCULAR HGB 28.6 pg (27.0-31.0); MEAN CORPUSCULAR HGB CONC 32.4 g/dl (33.0-37.0); MEAN PLATELET VOLUME 9.2 fl (9.6-12.3); MONO # 0.7 10*3/uL (0.1-1.0); MONO % 11.1 % (3.0-9.0); NEUT % 68.3 % (47.0-73.0); PLATELET COUNT AUTOMATED 108 10*3/uL (130-400); RED BLOOD COUNT 3.11 10*6/uL (4.10-5.10); RED CELL DISTRI WIDTH 15.4 % (0-14.5); WHITE BLOOD COUNT 5.9 10*3/uL (4.8-10.8)
[2017-08-24 09:40] VITALS: BP 142/79
[2017-08-24 12:00] VITALS: BP 141/80
[2017-08-24 16:00] VITALS: BP 117/65
[2017-08-25] VITALS: BP 128/72
[2017-08-25 08:00] VITALS: BP 123/63
[2017-08-25 12:00] VITALS: BP 139/90
[2017-08-25 16:00] VITALS: BP 155/86
[2017-08-25 20:00] VITALS: BP 117/64
[2017-08-26] VITALS: BP 124/80
[2017-08-26 08:00] VITALS: BP 152/87
[2017-08-26 12:00] VITALS: BP 152/87
[2017-08-26 16:00] VITALS: BP 149/71
[2017-08-26 20:00] VITALS: BP 132/78
[2017-08-27] VITALS: BP 149/72
[2017-08-27 05:50] LABS: ALBUMIN 2.1 gm/dl (3.1-4.5); POTASSIUM 4.7 mmol/L (3.5-5.1)
[2017-08-27 06:24] LABS: BASO % 0.5 % (0.0-1.0); EOS # 0.1 10*3/uL (0.0-0.4); EOS % 1.5 % (1.0-4.0); HEMATOCRIT 33.4 % (37.0-47.0); HEMOGLOBIN 10.4 g/dl (12.0-16.0); LYMPH % 26.6 % (27.0-41.0); MEAN CELL VOLUME 91.8 fl (81.0-99.0); MEAN CORPUSCULAR HGB 28.6 pg (27.0-31.0); MEAN CORPUSCULAR HGB CONC 31.1 g/dl (33.0-37.0); MEAN PLATELET VOLUME 9.2 fl (9.6-12.3); MONO # 0.7 10*3/uL (0.1-1.0); MONO % 8.8 % (3.0-9.0); NEUT # 4.6 10*3/uL (2.3-7.9); NEUT % 62.3 % (47.0-73.0); PLATELET COUNT AUTOMATED 176 10*3/uL (130-400); RED BLOOD COUNT 3.64 10*6/uL (4.10-5.10); RED CELL DISTRI WIDTH 15.9 % (0-14.5); WHITE BLOOD COUNT 7.4 10*3/uL (4.8-10.8)
[2017-08-27 12:00] VITALS: BP 145/96
[2017-08-27 16:00] VITALS: BP 141/84
[2017-08-27 20:00] VITALS: BP 137/75
[2017-08-28] VITALS: BP 142/89
[2017-08-28 08:00] VITALS: BP 136/80
[2017-08-28] MEDS ORDERED: LANTUS SOL100 UNIT/1 SC (08:34)
== END 2017-08-28 11:50 | disposition other institution (70) | DRG 371 ==
LOC: ED 19:23 → EDHOLD 20:37 → 5E 20:37
PROVIDERS: Internal Medicine; Internal Medicine Nephrology; Student in an Organized Health Care Education/Training Program
PROC: 30233N1 Transfusion of Nonautologous Red Blood Cells into Peripheral Vein, Percutaneous Approach (ICD-10-PCS; principal; 2017-08-21)
PROC: 0DJD8ZZ Inspection of Lower Intestinal Tract, Via Natural or Artificial Opening Endoscopic (ICD-10-PCS; 2017-08-22)
PROC: 5A1D70Z Performance of Urinary Filtration, Intermittent, Less than 6 Hours Per Day (ICD-10-PCS; 2017-08-22)
PROC: 5A1D70Z Performance of Urinary Filtration, Intermittent, Less than 6 Hours Per Day (ICD-10-PCS; 2017-08-24)
PROC: 5A1D70Z Performance of Urinary Filtration, Intermittent, Less than 6 Hours Per Day (ICD-10-PCS; 2017-08-27)
DX: A04.72 Enterocolitis due to Clostridium difficile, not specified as recurrent (principal); N18.6 End stage renal disease; E11.22 Type 2 diabetes mellitus with diabetic chronic kidney disease; K52.1 Toxic gastroenteritis and colitis; K31.84 Gastroparesis; Z94.4 Liver transplant status; K57.31 Diverticulosis of large intestine without perforation or abscess with bleeding; E11.43 Type 2 diabetes mellitus with diabetic autonomic (poly)neuropathy; E87.5 Hyperkalemia; I12.0 Hypertensive chronic kidney disease with stage 5 chronic kidney disease or end stage renal disease; R62.7 Adult failure to thrive; T36.95XA Adverse effect of unspecified systemic antibiotic, initial encounter; D50.9 Iron deficiency anemia, unspecified; Z99.2 Dependence on renal dialysis; Z79.4 Long term (current) use of insulin; Z79.899 Other long term (current) drug therapy; Z90.49 Acquired absence of other specified parts of digestive tract; Z80.9 Family history of malignant neoplasm, unspecified; Z82.49 Family history of ischemic heart disease and other diseases of the circulatory system; Y92.89 Other specified places as the place of occurrence of the external cause

== ENCOUNTER 2017-11-12 13:33 | Inpatient (IN) | payer BC, MEDICARE ==
[~2017-11-12] VITALS: Ht 152.4 cm; Wt 54.9 kg
[2017-11-12] VITALS (13 sets, daily range): BP systolic 102–134; BP diastolic 55–81
--- NOTE | ~2017-11-12 | PR ---
[place], [place] PROGRESS NOTE [id number] UNIT #: [id number] ROOM: 522 DOCTOR: SHERRIE STREETER MD,ETHAN BIRTHDATE: [birth year] DOS: 11/16/2017 SUBJECTIVE: The patient was noted without any acute distress at the present time, noted comfortable, receiving her hemodialysis for today, noted fully awake and alert. OBJECTIVE: VITAL SIGNS: For the patient which have been recorded shows normal temperature, respiratory rate 18, heart rate 102, blood pressure 130/76, pulse ox saturation on room air 98% saturation. HEENT: Head was atraumatic. Eyes nonicterus. NECK: Supple. CARDIOVASCULAR: S1, S2 audible. LUNGS: The patient was noted without any wheezing or crackles at the present time. ABDOMEN: Soft, flat, nontender, bowel sounds present. EXTREMITIES: No edema. IMPRESSION: 1. Stable respiratory status. 2. Improvement in mental status. 3. Question of pneumonia of the left lower lobe. 4. Urinary tract infection, which has been treated with the antibiotics. 5. End-stage renal failure, on hemodialysis. PLAN OF MANAGEMENT: No changes in the plan of care. Continuation of the current plan of therapy at the present time except adjustment in medication will be done with discontinuation of the doxycycline and Rocephin at this time. Continuation of the IV Zosyn. Supportive care therapy, plan of management and care plan and other treatment and therapies. ETHAN BALDERAS MD CM:PNTRANS [phone] MD 11/17/17 0121 interface
--- NOTE | ~2017-11-12 | PR ---
[place], [place] PROGRESS NOTE [facility] [id number] UNIT #: [id number] ROOM: 522 DOCTOR: KEE LUCIANO MD BIRTHDATE: [birth year] DOS: 11/18/2017 SUBJECTIVE: The patient with jaundice and elevation of bilirubin. OBJECTIVE: VITAL SIGNS: Blood pressure 151/97, heart rate of 80 beats per minute, breathing 16 times per minute, temperature 98 degrees Fahrenheit. GENERAL APPEARANCE: The patient is alert and oriented x 3, in no visible distress. HEENT AND NECK: Exam within normal limits. CARDIOVASCULAR SYSTEM: Heart rate is regular in rate and rhythm. S1 and S2 normally audible. LUNGS: Clear to auscultation. ABDOMEN: Soft, nontender. No obvious organomegaly. Bowel sounds are present. EXTREMITIES: Without significant cyanosis or edema. IMPRESSION: 1. The patient with adult failure to thrive and poor prognosis with multiple medical problems, now maintains a DNR comfort care code status. 2. Acute elevation of bilirubin and some elevation of alkaline phosphatase from uncertain etiology. I am consulting Dr. Strauss on a stat basis for an opinion. 3. History of liver transplant and the patient remains on Prograf for this. 4. Recent acute anemia, treated with blood transfusion. Blood counts ordered for tomorrow. 5. Severe protein calorie malnutrition related to her poor health and she has poor prognosis. The patient working with dietary. 6. End-stage kidney failure. The patient remained on hemodialysis. 7. Urinary tract infection with Escherichia coli, being treated with IV Zosyn. 8. Type 2 diabetes mellitus. Blood sugars are being monitored and treated. KEE LUCIANO MD CM:PNTRANS [id number] KEE LUCIANO MD 11/19/17 0414 interface
--- NOTE | ~2017-11-12 | PR ---
[place], [place] PROGRESS NOTE NAME: [facility]NG [facility]IV[facility] #: [id number] UNIT #: [id number] ROOM: 522 DOCTOR: KEE LUCIANO MD BIRTHDATE: [birth year] DOS: 11/15/2017 SUBJECTIVE: The patient is more awake and alert and more oriented today than before and her code status has been changed to DNRCC by her . PHYSICAL EXAMINATION: VITAL SIGNS: Blood pressure 133/75, heart rate of 100 beats per minute, afebrile, breathing normally. IMPRESSION: 1. The patient with acute anemia, treated with blood transfusion. She has previous history of gastrointestinal bleed, but last Hemoccult stool was negative. 2. Anemia of chronic disease and chronic kidney disease. 3. The patient's code status has been converted to DNRCC by her . 4. End-stage kidney disease with kidney failure, the patient requiring hemodialysis. 5. Hospice consult is being considered by her . 6. Severe protein-calorie malnutrition and poor prognosis. The patient working with Dietary. 7. History of liver transplant. The patient kept on Prograf. 8. Hypokalemia, treated with extra potassium supplements. I will repeat her potassium levels. 9. Type 2 diabetes mellitus and diabetic gastroparesis. Blood sugars are being monitored and treated and have been staying normal. KEE LUCIANO MD CM:PNTRANS [phone] KEE LUCIANO MD 11/16/17 0238 interface
--- NOTE | ~2017-11-12 | PR ---
[place], [place] PROGRESS NOTE [id number] UNIT #: [id number] ROOM: 522 DOCTOR: SHERRIE STREETER MD,ETHAN BIRTHDATE: [birth year] DOS: 11/15/2017 SUBJECTIVE: The patient had not been noted any ongoing acute new respiratory complaints at this time, was noted comfortable without any acute distress, noted fully awake and alert this morning and conversing. OBJECTIVE: VITAL SIGNS: For the patient which has been recorded shows normal temperature, respiratory rate 20, heart rate 102 , blood pressure 132/86. Pulse oxygen saturation on room air was 96% saturation. HEENT: Head was atraumatic. Eyes nonicterus. NECK: Supple. CARDIOVASCULAR: S1, S2 audible. LUNGS: The patient was noted without any wheezing or crackles. ABDOMEN: Soft and nontender. Bowel sounds present. EXTREMITIES: Without any acute edema. LABORATORY DATA: CBC on 11/15/2017, WBC count 13.6, platelet count 87,000. IMPRESSION: 1. The patient has end-stage renal failure, on hemodialysis. 2. Urinary tract infection. Acute change in mental status improved significantly in the last 24 hours. PLAN OF MANAGEMENT: No change in plan of management. Continue medical management of infection, end-stage renal failure, hemodialysis management. Possible pneumonia, left lower lobe, which is already treated with antibiotics. Other plan of care to be continued as previously. Usual care. ETHAN BALDERAS MD CM:PNTRANS [id number] MD 11/29/17 0852 interface
--- NOTE | ~2017-11-12 | PR ---
[place], [place] PROGRESS NOTE NAME: KVNG RIVERO UNIT #: [id number] ROOM: 522 DOCTOR: ETHAN SLOAN MD BIRTHDATE: [birth year] DOS: 11/19/2017 PULMONARY PROGRESS NOTE SUBJECTIVE: The patient was noted comfortable receiving hemodialysis this morning. Denies symptoms of shortness of breath, coughing, or sputum expectoration today. OBJECTIVE: VITAL SIGNS: For the patient which have been recorded shows normal temperature, respiratory rate 20, heart rate 79, blood pressure 113/65. Pulse ox saturation on room air 96% saturation recorded. HEENT: Head was atraumatic. Eyes nonicterus. CARDIOVASCULAR SYSTEM: S1, S2 audible. LUNGS: Without any wheeze or crackles. ABDOMEN: Soft. EXTREMITIES: Without any acute edema. LABORATORY DATA: CBC: Normal WBC count, hemoglobin 11, hematocrit normal. CMP of the patient this morning, glucose 284, BUN 24, creatinine 3.97. Total protein 5.1. AST 45. Total bilirubin noted at 9.8. IMPRESSION: 1. The patient with abnormal LFTs with hyperbilirubinemia. 2. End-stage renal failure, on hemodialysis. 3. Resolution of mental status change. 4. The patient's urinary tract infection with a small area of infiltration atelectasis in the left lower lobe, clinically better as well. PLAN OF MANAGEMENT: No changes in the plan of care. At this time, continue the patient with current therapy, plan and management as in progress. Usual care, other supportive plan of management and treatment. Usual treatment and therapies. [place], [place] PROGRESS NOTE NAME: KVNG RIVERO UNIT #: [id number] ROOM: 522 DOCTOR: ETHAN SLOAN MD BIRTHDATE: [birth year] ETHAN BALDERAS MD CM:PNTRANS [phone] MD 11/20/17 0138 interface
--- NOTE | ~2017-11-12 | PR ---
[place], [place] PROGRESS NOTE NAME: KVNG RIVERO UNIT #: [id number] ROOM: 522 DOCTOR: SON MAHER MD BIRTHDATE: [birth year] DOS: 11/17/2017 NEPHROLOGY FOLLOWUP NOTE SUBJECTIVE: The patient was seen and evaluated. She was eating lunch and actually looked pretty good. She was awake and alert. She was on room air. Family was at bedside stated she looked more jaundiced today. I am not clear of the details, but it seems the patient has been refusing hospice and is now being dialyzed Sunday, Sunday, and Sunday and my understanding is that dialysis will continue. PHYSICAL EXAMINATION: VITAL SIGNS: Temperature 97.6, pulse 97, respiratory rate 18, blood pressure was 91/50. Previous blood pressures were in the 110s to 120s. HEENT: Shows no JVD. LUNGS: Had diminished breath sounds with no wheeze. HEART: S1, S2. ABDOMEN: Soft, nontender. EXTREMITIES: Had 1+ edema. SKIN: Jaundiced. LABORATORY DATA: From yesterday, white count of 13.2, hemoglobin 12.7, platelets 87. ASSESSMENT AND PLAN: 1. End-stage renal disease. The patient is on dialysis Sunday, Sunday, and Sunday. We will continue Sunday, Sunday, Sunday schedule. 2. Leukocytosis. This appears to be stable. She has had blood cultures that appeared to have had no growth. 3. History of liver transplant. The patient is on immunosuppression. I am not clear of the status of her liver function. She does have jaundice noted. 4. Encephalopathy, which apparently has improved. From a renal standpoint, the patient is acceptable for discharge. She should report to the Dialysis Clinic on Sunday. [place], [place] PROGRESS NOTE NAME: KVNG RIVERO UNIT #: [id number] ROOM: 522 DOCTOR: SON MAHER MD BIRTHDATE: [birth year] SON MAHER MD CM:PNTRANS [phone] SON MAHER MD 11/18/17 0242 interface
--- NOTE | ~2017-11-12 | PR ---
[place], [place] PROGRESS NOTE [id number] UNIT #: [id number] ROOM: 522 DOCTOR: SHERRIE STREETER MD,ETHAN BIRTHDATE: [birth year] DOS: 11/18/2017 PULMONARY PROGRESS NOTE SUBJECTIVE: She was noted quite comfortable at this time stating that she is feeling better. Denies symptoms of chest pain, no hemoptysis. Denies symptoms of acute shortness of breath at rest. The mental status changes have been improved markedly. OBJECTIVE: VITAL SIGNS: For the patient which has been recorded shows the temperature noted as normal, respiratory rate 20, heart rate 86, blood pressure 114/65. Pulse oxygen saturation room air 97% saturation. HEENT: Head was atraumatic. NECK: Supple. CARDIOVASCULAR: S1, S2 is audible. LUNGS: The patient was noted without any wheeze or crackles. ABDOMEN: Soft, nontender. Bowel sounds present. EXTREMITIES: Without any acute edema. IMPRESSION: 1. The patient with resolution of mental status changes with improving acute urinary tract infection. 2. Severe debility as well. 3. End-stage renal failure, on hemodialysis. PLAN OF TREATMENT: No changes in the plan of the patient's care will be noted today from pulmonary standpoint. The patient does not requiring oxygen supplementation. Continuation of the other plan of management as in progress including the antibiotic usage. ETHAN BALDERAS MD CM:PNTRANS [phone] MD 11/18/17 2335 interface
--- NOTE | ~2017-11-12 | PR ---
[place], [place] PROGRESS NOTE [id number] UNIT #: [id number] ROOM: 522 DOCTOR: SON MAHER MD BIRTHDATE: [birth year] DOS: 11/18/2017 SUBJECTIVE: The patient was seen and examined. She is awake and alert. She was eating lunch. She states she feels fine. She is on room air. She appeared comfortable. PHYSICAL EXAMINATION: VITAL SIGNS: Temperature 97.3, pulse 86, respiratory rate 20, blood pressure 114/65. HEENT: Shows no JVD. LUNGS: Diminished breath sound, fairly clear otherwise. HEART: S1, S2. No rub. ABDOMEN: Soft, nontender. EXTREMITIES: Showed trace edema. SKIN: Showed no rash. LABORATORY DATA: Reviewed from the past few days. There has been no recent labs. Last lab noted from 11/16/2017 showed hemoglobin of 12.7, white count of 13.2, platelets of 87. ASSESSMENT AND PLAN: 1. End-stage renal disease. The patient will continue dialysis on Sunday, Sunday and Sunday. Dialysis will be planned for tomorrow unless there is a sudden change to the plan. 2. Leukocytosis. This is stable. She has had negative blood cultures. 3. History of liver transplant. The patient is on immunosuppression. 4. Encephalopathy. This seems to have improved. 5. From a renal standpoint, she is acceptable for discharge. SON MAHER MD CM:PNTRANS [phone] SON MAHER MD 11/19/17 0255 interface
--- NOTE | ~2017-11-12 | PR ---
[place], [place] PROGRESS NOTE [id number] UNIT #: [id number] ROOM: 522 DOCTOR: SHERRIE STREETER MD,ETHAN BIRTHDATE: [birth year] DOS: 11/17/2017 SUBJECTIVE: She has been noted comfortable at this time, resting on the bed without acute distress, received hemodialysis yesterday. Denies symptoms of acute coughing, sputum expectoration, and chest pain. OBJECTIVE: VITAL SIGNS: Blood pressure was noted as 91/50, respiratory rate of 18, heart rate 97 with a normal temperature. HEENT: Head was atraumatic. Eyes were noted with icterus. CARDIOVASCULAR: S1, S2 audible. LUNGS: No wheeze or crackles. ABDOMEN: Soft, nontender. Bowel sounds present. EXTREMITIES: Without any acute edema. IMPRESSION: 1. The patient with acute urinary tract infection and with mental status changes, all improving progressively. 2. End-stage renal failure. PLAN OF MANAGEMENT: No therapy changes, from the pulmonary standpoint, the patient continued on current plan of care and has been noted ongoing with the help of the other consultants. Usual care, other supportive plan of management and care plan and therapies. ETHAN BALDERAS MD CM:PNTRANS [phone] MD 11/18/17 0034 interface
--- NOTE | ~2017-11-12 | WRIGHTHP ---
[place], [place] PATIENT HISTORY AND PHYSICAL EXAM NAME: [facility] #: [id number] UNIT #: [id number] ROOM: [facility] DOCTOR: KEE LUCIANO MD BIRTHDATE: [birth year] DOS: 11/12/2017 HISTORY OF PRESENT ILLNESS: The patient is a 57-year-old female with a past medical history of: 1. End-stage kidney failure. The patient is on hemodialysis. 2. Adult failure to thrive. 3. Major depression, recurrent, severe. 4. History of liver transplant for alcoholic liver disease. 5. Severe protein-calorie malnutrition. 6. GERD and esophagitis. 7. Type 2 diabetes mellitus, uncontrolled. 8. History of esophageal stricture, status post dilatation in the past. 9. Chronic lower back pains, lumbar spondylosis. 10. Vitamin D deficiency. 11. Chronic primary insomnia. 12. The patient has had history of benign essential hypertension, hypocalcemia, thrombocytopenia. Nicotine smoke dependence, diabetic gastroparesis and ketoacidosis, also history of C. diff colitis. The patient presented to [facility], sent over from the dialysis center where her blood pressure had dropped to 60-70 systolic. The patient was evaluated in the Emergency Department by Dr. Cerda for hypotension. The patient is very weak and has not been eating well for several days according to her . The patient is not complaining of any symptoms, but she is not communicating much. The patient was evaluated in the Emergency Department and diagnosed as having sepsis because of her leukocytosis, hypotension, urine infection, lung infiltrate compatible with pneumonia and anemia. The patient was ordered 1 unit of packed cells in the Emergency Department, given antibiotic and recommended for admission to ICU with a full code status. After admission, the patient looks very weak and is hardly speaking. The patient is not eating on her own and requires help with drinking dietary supplements. The patient's is present with her. No recent chest pain, increasing shortness of breath. No fainting episodes or any other GI or urinary symptoms. REVIEW OF SYSTEMS: LUNGS: No increasing shortness of breath. GASTROINTESTINAL: No nausea, vomiting, diarrhea or constipation. Just poor appetite. CARDIOVASCULAR SYSTEM: No chest pain or palpitations. FAMILY HISTORY: Noncontributory. SOCIAL HISTORY: . Denies smoking cigarettes, alcohol and drug abuse. Previous history of alcohol dependence. HOME MEDICATIONS: The patient was taking tacrolimus which is Prograf, vitamin D, Remeron, Cymbalta, Megace, Florastor. [place], [place] PATIENT HISTORY AND PHYSICAL EXAM NAME: [facility] #: [id number] UNIT #: [id number] ROOM: [facility] DOCTOR: KEE LUCIANO MD BIRTHDATE: [birth year] PHYSICAL EXAMINATION: GENERAL: The patient is very weak, keeps her eyes closed, is not talking much, very weak. HEENT AND NECK: Extraocular movements are intact. Sclerae are anicteric. Oral mucosa is moist and clean. No obvious facial weakness. Neck is supple without any lymphadenopathy. No thyromegaly. No JVD. No carotid arterial bruits. LUNGS: Clear to auscultation. No wheezing. No rhonchi. CARDIOVASCULAR SYSTEM: Heart rate is regular in rate and rhythm. S1 and S2 normally audible. No significant murmur or any other abnormal cardiac sounds. ABDOMEN: Soft, nontender. No obvious organomegaly. Bowel sounds are present. No obvious herniation. EXTREMITIES: Without significant cyanosis or edema. Warm to touch. CENTRAL NERVOUS SYSTEM: Alert and oriented x 3. Cranial nerves II-XII are intact. Speech is normal. The patient is able to move all extremities. Normal muscle strength. Deep tendon reflexes are equal on both sides. Plantars were downgoing. LABORATORY DATA: BUN and creatinine 20 and 3, sugar of 218, hypokalemia of 3.4, now returned to normal. Albumin low at 1.8. Lactic acid level normal. IMPRESSION AND PLAN: 1. The patient presenting with sepsis, leukocytosis, hypotension, urine infection and pneumonia with left lower lung infiltrate. The patient maintains a full code status and for hypotension and sepsis she was admitted to the ICU and Pulmonary and Renal consults were obtained. The patient's blood pressure has improved and she is being treated with antibiotics. The patient's fluid status is being monitored by Nephrology. The patient's is present and code status of the patient which is full code was discussed with her , who will discuss it with the patient, which is his and let me know if they want me to maintain a full code status versus comfort care because generally patient's prognosis remains guarded. 2. Severe protein calorie malnutrition and adult failure to thrive. The patient is being encouraged to eat and Dietary will follow. 3. Chronic kidney failure. The patient remains on hemodialysis. Nephrology consulted to continue hemodialysis. Apparently, the patient is hypovolemic and crisis mental health therapist to manage fluid balance. 4. Hypokalemia, has now resolved. Potassium level is normal. 5. History of liver transplant. The patient remains on Prograf. 6. Major depression, recurrent, severe, being treated with Cymbalta. 7. Type 2 diabetes mellitus. Blood sugar is to be monitored and treated. The patient also has history of diabetic gastroparesis, but no recent vomiting. 8. Overall poor health and poor prognosis in the long run. [place], [place] PATIENT HISTORY AND PHYSICAL EXAM NAME: [facility] UNIT #: [id number] ROOM: [facility] DOCTOR: KEE LUCIANO MD BIRTHDATE: [birth year] KEE LUCIANO MD CM:HISPHYS:PATIENT HISTORY AND PHYSICAL EXAMINATION [id number] KEE LUCIANO MD 11/13/17 1016 interface
--- NOTE | ~2017-11-12 | PR ---
[place], [place] PROGRESS NOTE NAME: [facility] #: [id number] UNIT #: [id number] ROOM: 522 DOCTOR: KEE LUCIANO MD BIRTHDATE: [birth year] DOS: 11/19/2017 OBJECTIVE: VITAL SIGNS: Blood pressure 110/64, heart rate of 86 beats per minute, breathing normally, afebrile. GENERAL: Generalized weakness. HEENT AND NECK: Exam within normal limits. CARDIOVASCULAR SYSTEM: Heart rate is regular in rate and rhythm. S1 and S2 normally audible. LUNGS: Clear to auscultation. ABDOMEN: Soft, nontender. No obvious organomegaly. Bowel sounds are present. EXTREMITIES: Without significant cyanosis or edema. IMPRESSION: 1. The patient has progressive elevation of bilirubin and some elevation of alkaline phosphatase, evaluated by Dr. Strauss who has not recommended any further intervention considering that the patient is to be kept on comfort care and he does not think that any further intervention would be able to help the patient. Dr. Strauss has ordered ammonia level on the patient. 2. Advanced adult failure to thrive. 3. Poor prognosis. The patient has been changed to code status of DNR comfort care. 4. Kidney failure. The patient remains on hemodialysis. 5. Severe protein-calorie malnutrition related to poor health and poor prognosis. 6. End-stage kidney failure. The patient remained on hemodialysis. 7. Urinary tract infection, Escherichia coli, treated with IV Zosyn. 8. Type 2 diabetes mellitus. Blood sugars being monitored and treated. 9. Acute anemia, treated with blood transfusion, drop in hemoglobin to 11. The patient with anemia of chronic disease, was Hemoccult negative during this admission, Dr. Strauss is on consult. 10. Type 2 diabetes mellitus. Blood sugars being monitored and treated. 11. History of liver transplant. The patient remains on Prograf. KEE LUCIANO MD CM:PNTRANS [id number] KEE LUCIANO MD 11/20/17 0051 interface
--- NOTE | ~2017-11-12 | PR ---
[place], [place] PROGRESS NOTE NAME: [facility] UNIT #: [id number] ROOM: 522 DOCTOR: KEE LUCIANO MD BIRTHDATE: [birth year] DOS: 11/14/2017 SUBJECTIVE: The patient is still very weak, does open her eyes, unable to communicate. OBJECTIVE: VITAL SIGNS: Blood pressure 115/63, breathing 17 times per minute, heart rate of 108 beats per minute, temperature of 99.1 degrees Fahrenheit. GENERAL APPEARANCE: Generalized weakness other than mental confusion. HEENT AND NECK: Exam within normal limits. CARDIOVASCULAR SYSTEM: Heart rate is regular in rate and rhythm. S1 and S2 normally audible. LUNGS: Clear to auscultation. ABDOMEN: Soft, nontender. No obvious organomegaly. Bowel sounds are present. EXTREMITIES: Without significant cyanosis or edema. IMPRESSION: The patient remains in the ICU with sepsis, leukocytosis, hypotension, urine infection and pneumonia in the left lower lung, being treated with antibiotics. The patient is being observed closely in the ICU. The patient appears more stable. Blood cultures have been normal. Urine cultures growing E. coli, more than 100,000 colonies, but leukocytosis has resolved. I will continue treatment. The patient overall has poor prognosis. 1. Acute anemia with hemoglobin of 6.5 with Hemoccult negative stool. The patient is being transfused with 1 unit of packed cells and hemoglobin will be monitored. 2. Anemia of chronic kidney disease and anemia of chronic disease. The patient is status post blood transfusion, will be followed closely. 3. Type 2 diabetes mellitus. Blood sugars are being monitored and treated. The patient has history of diabetic gastroparesis in the past. 4. Hypokalemia, resolved now on repeat blood test. 5. History of liver transplant, being treated with Prograf. 6. Chronic kidney disease and end-stage kidney failure. The patient remains on hemodialysis and being followed by Nephrology. 7. Severe protein calorie malnutrition and poor prognosis. The patient is working with Dietary. [place], [place] PROGRESS NOTE NAME: [facility] UNIT #: [id number] ROOM: 522 DOCTOR: KEE LUCIANO MD BIRTHDATE: [birth year] KEE LUCIANO MD CM:HARPREET [id number] KEE LUCIANO MD 11/15/17 0502 interface
--- NOTE | ~2017-11-12 | PR ---
[place], [place] PROGRESS NOTE NAME: [facility] #: [id number] UNIT #: [id number] ROOM: 522 DOCTOR: KEE LUCIANO MD BIRTHDATE: [birth year] DOS: 11/17/2017 SUBJECTIVE: The patient pretty weak, but wanting to go home. OBJECTIVE: VITAL SIGNS: Blood pressure 110/67, heart rate of 95 beats per minute, breathing 16 times per minute, afebrile. GENERAL APPEARANCE: The patient is alert and oriented x 3, except for generalized weakness. HEENT AND NECK: Exam within normal limits. CARDIOVASCULAR SYSTEM: Heart rate is regular in rate and rhythm. S1 and S2 normally audible. LUNGS: Clear to auscultation. ABDOMEN: Soft, nontender. No obvious organomegaly. Bowel sounds are present. EXTREMITIES: Without significant cyanosis or edema. IMPRESSION: The patient with: 1. Mental confusion somewhat improved. The patient is still considering discontinuation of hemodialysis. The patient now maintains a comfort care code status and apparently, she only qualifies for going home, not to a care home facility. I may be able to discharge her to home tomorrow. 2. Very poor health and poor prognosis and advanced adult failure to thrive. 3. Type 2 diabetes mellitus. I am monitoring blood sugars and treating accordingly. 4. Urinary tract infection with Escherichia coli sensitive to IV Zosyn that the patient is getting. 5. Chronic end-stage kidney failure. The patient remains on hemodialysis. 6. Anemia of chronic kidney disease. 7. Severe protein calorie malnutrition and poor prognosis. The patient working with dietary. 8. History of liver transplant, treated with Prograf. 9. Acute anemia, treated with blood transfusion. Hemoccult stool was negative. Hemoglobin has improved to 12.7. KEE LUCIANO MD CM:PNTRANS [id number] KEE LUCIANO MD 11/18/17 0539 interface
--- NOTE | ~2017-11-12 | PR ---
[place], [place] PROGRESS NOTE NAME: [facility] UNIT #: [id number] ROOM: 522 DOCTOR: ETHAN SLOAN MD BIRTHDATE: [birth year] DOS: 11/14/2017 SUBJECTIVE: The patient was noted comfortable at this time without any acute distress. She has not been noted with any symptoms of chest pain. Still noted with general weakness, fatigue, receiving hemodialysis this morning. OBJECTIVE: VITAL SIGNS: Normal temperature, respiratory rate 17, pulse 77, blood pressure 118/71, pulse ox saturation on room air 98% saturation. HEENT: Head was atraumatic. Eye nonicterus. NECK: Supple. CARDIOVASCULAR: S1, S2 audible. LUNGS: The patient noted without any wheezing or crackles. ABDOMEN: Soft, nontender. LABORATORY DATA: Culture of the urine noted ESBL producing E. coli. CBC of the patient this morning, normal WBC count, hemoglobin 6.5, hematocrit 21.1, platelet count of 80,000. IMPRESSION: 1. The patient noted with ESBL species with urinary tract infection. 2. Hypertension. 3. Questionable pneumonia. 4. The patient has lower lobe effusion as well. 5. End-stage renal failure. 6. Adult failure to thrive. PLAN OF MANAGEMENT: No changes from the pulmonary standpoint. Current discussion has been ongoing for the patient between the family members and the primary care attending about the hospice assessment which would be appropriate for this patient. Management of ESBL species for the patient. Urinary tract infection to be done according to the medications administration needed for the patient with the use of medication such as either Zosyn or meropenem dose to the renal function impairment with end-stage renal failure. [place], [place] PROGRESS NOTE NAME: [facility] UNIT #: [id number] ROOM: 522 DOCTOR: ETHAN SLOAN MD BIRTHDATE: [birth year] ETHAN BALDERAS MD CM:PNTRANS [address] MD 11/15/17 0134 interface
--- NOTE | ~2017-11-12 | CON ---
[place], [place] REPORT [facility] CON[facility]ULTATION [id number] #: [id number] ROOM: 522 DOCTOR: TIMOTEO DIEZPATRICIA BIRTHDATE: [birth year] DOS: 11/19/2017 GASTROENDOSCOPIC REPORT HISTORY OF PRESENT ILLNESS: The patient has presented with a change in mentation, not feeling well, encephalopathy. The patient is a known case of previous liver transplant, chronic renal failure and dialysis. At the time of admission, creatinine was 2.65, and GFR of 22. Her electrolytes were borderline balanced, magnesium 1.8. Liver function test, elevated alkaline phosphatase. Otherwise, bilirubin total of 4.3. Recent lab shows again dialysis dependency and elevation of creatinine and total bilirubin winsome to 9.8. The patient has been placed on comfort care. The patient's H and H today has been 11 and 34 with platelets of 51. Her CBC initially, white blood cell was 17, H and H was 6 and 22. Microcytic, however, continued with thrombocytopenia, which is worsening now. Chest x-ray, no significant pathology, patchy area of atelectasis left base. PAST MEDICAL HISTORY: Diabetes mellitus, hypertension, liver failure, history thrombocytopenia, nicotine dependency, end-stage renal failure, hypertension. PAST SURGICAL HISTORY: , liver transplant, hernia repairs, cholecystectomy. SOCIAL HISTORY: Smoker, nonalcohol consumer. FAMILY HISTORY: Noncontributory. ALLERGIES: To no known medications. MEDICATIONS: Medication list has been reviewed. REVIEW OF SYSTEMS: Cannot be obtained from her. She does not communicate, confused. PHYSICAL EXAMINATION: VITAL SIGNS: Stable. GENERAL: Frail patient. HEENT: Head normocephalic, nontraumatic. Mouth and buccal mucosa benign, edentulous. NECK: Supple, no thyromegaly, no cervical lymphadenopathy. CHEST: Symmetric anatomy, equal expansion. No wheeze, no rhonchi. HEART: Normal sinus rhythm, no gallop, no murmur. ABDOMEN: Soft. No hepato-organomegaly. There is no tenderness on the left transplanted liver. EXTREMITIES: Dry. No cyanosis, no pedal edema. NEUROLOGIC: Alert, however, disoriented. IMPRESSION: 1. Progressive worsening of the bilirubin. This appears to be associated with her creatinine clearance decrease, although she is on dialysis. [place], [place] REPORT OF CONSULTATION NAME: [facility] UNIT #: [id number] ROOM: 522 DOCTOR: TIMOTEO DIEZ,PATRICIA BIRTHDATE: [birth year] 2. Thrombocytopenia, which is worsening. OTHER ADJUNCTIVE DIAGNOSIS: Encephalopathy, which is most likely related to liver. PLAN AND DISCUSSION: I am going to obtain a serum ammonia level this afternoon. We are going to start her on lactulose, disregard of waiting for the result of ammonia. Her blood cultures have been negative; however, urine culture greater than 100,000 bacteria with heavy gram-negative bacilli, E. coli has been already addressed. Glucose fortunately stays normal and she is not actively bleeding. So, her anemia is also secondary to chronic renal disease most likely and chronic diseases in general. The patient in general has the status of failure to thrive at the present time and according to Dr. Medina, conservative management has been decided and comfort care per family and we will move along without further invasive to see if we can help her along. She appears to be dry in general to me as well. Thank you very much indeed for your kind referral. Other adjunctive diagnoses as outlined in paragraph of past medical and surgical history. PATRICIA MAHMOOD MD CM:CONSTR:REPORT OF CONSULTATION 1555 11/20/17 0327 interface
--- NOTE | ~2017-11-12 | PR ---
[place], [place] PROGRESS NOTE NAME: [facility] #: [id number] UNIT #: [id number] ROOM: 522 DOCTOR: SHERRIE STREETER MD,ETHAN BIRTHDATE: [birth year] DOS: 11/20/2017 SUBJECTIVE: The patient noted comfortable at this time, resting on the bed without any acute distress. She has not been noted any symptoms of chest pain, noted fully awake and alert. OBJECTIVE: VITAL SIGNS: For the patient which has been recorded showed normal temperature, respiratory rate 20, heart rate 89, and blood pressure 121/79. The pulse oxygen saturation on room air 99% saturation. HEENT: Head was atraumatic. Eyes were noted with icterus. Oral mucosa was moist. NECK: Supple. CARDIOVASCULAR: S1, S2 is audible. LUNGS: The patient was noted without any wheeze or crackle at the present time. ABDOMEN: Soft, nontender. Bowel sounds present. EXTREMITIES: The patient was noted without any acute edema. FINAL IMPRESSION: 1. The patient with resolving acute possible pneumonia, left lower lobe with pleural fluid clinically. 2. Improvement in mental status. The patient has a resolution of urinary tract infection noted. 3. End-stage renal failure, on hemodialysis. 4. Abnormal liver function testing including hyperbilirubinemia, currently assessed by the Gastroenterology Services. PLAN OF MANAGEMENT: No changes from the Pulmonary standpoint. Continue the patient's current therapy, plan of management as in progress. Other usual care and therapies. ETHAN BALDERAS MD CM:PNTRANS [address] MD 11/20/17 1057 interface
--- NOTE | ~2017-11-12 | EKG ---
[place], [place] ELECTROCARDIOGRAM REPORT NAME: [facility] UNIT #: [id number] ROOM: 522 DOCTOR: SHERRIE STREETER MD,ETHAN BIRTHDATE: [birth year] DOS: 11/12/2017 The electrocardiogram was done on 11/12/2017 for this patient at 1421 hours. The electrocardiogram of the patient shows evidence of sinus tachycardia, heart rate of 100 beats per minute. Poor R-wave progression noted. Nonspecific ST-T changes noted in the remaining leads as well. ETHAN BALDERAS MD CM:EKGRPT:ELECTROCARDIOGRAM REPORT [address] MD
--- NOTE | ~2017-11-12 | PR ---
[place], [place] PROGRESS NOTE NAME: [facility] #: [id number] UNIT #: [id number] ROOM: 522 DOCTOR: JARED CHURCHILL MD BIRTHDATE: [birth year] DOS: SUBJECTIVE: The patient is about the same. She refused hospice and wanted to continue with dialysis. OBJECTIVE: VITAL SIGNS: Graphic trend shows a pressure of 142/81, pulse of 90, respirations 18, temperature 98.2. LUNGS: Clear. HEART: Regular. ABDOMEN: Soft, scaphoid. EXTREMITIES: Without any edema. ASSESSMENT AND PLAN: 1. End-stage renal failure, on dialysis. 2. Adult failure to thrive. Overall, prognosis remains poor and guarded. The patient was made comfort care and she was told to have hospice, but the patient has continued to request dialysis, so the hospice cannot see her in that instance. 3. Type 2 diabetes mellitus. 4. Urinary tract infection with Escherichia coli, sepsis has been ruled out with negative blood cultures. Plan is to discharge her to home. JARED CHURCHILL MD CM:PNTRANS 5 [phone] JARED CHURCHILL MD 11/16/172034 interface
--- NOTE | ~2017-11-12 | PR ---
[place], [place] [facility]GRESS NOTE [id number] #: [id number] ROOM: 522 DOCTOR: KEE LUCIANO MD BIRTHDATE: [birth year] DOS: 11/18/2017 SUBJECTIVE: The patient appearing jaundiced now, although she says she is feeling better. Mental confusion improved. OBJECTIVE: VITAL SIGNS: Blood pressure 151/97, heart rate 80 beats per minute, breathing 16 times per minute, temperature of 98 degrees Fahrenheit. GENERAL APPEARANCE: The patient is alert and oriented x 3, in no visible distress. The patient is icteric, jaundiced and has generalized weakness. HEENT AND NECK: Exam within normal limits. CARDIOVASCULAR SYSTEM: Heart rate is regular in rate and rhythm. S1 and S2 normally audible. LUNGS: Clear to auscultation. ABDOMEN: Soft, nontender. No obvious organomegaly. Bowel sounds are present. EXTREMITIES: Without significant cyanosis or edema. IMPRESSION: 1. The patient with acute elevation of bilirubin to 9.9 and elevation of alkaline phosphatase to 352 from uncertain etiology. The patient does have history of liver transplant and remains on tacrolimus. I am start consulting Dr. Strauss, the spout liner helper to evaluate the patient. 2. Very poor health and poor prognosis with advanced adult failure to thrive. 3. Mental confusion has somewhat improved. 4. Kidney failure, the patient remained on hemodialysis. 5. Anemia of chronic disease and chronic kidney failure. 6. Severe protein calorie malnutrition and poor prognosis. 7. Acute anemia, treated with blood transfusion, hemoglobin improved to 13.2. KEE LUCIANO MD CM:PNTRANS 1714 [id number] KEE LUCIANO MD 11/19/17 0359 interface
--- NOTE | ~2017-11-12 | DS ---
[place], [place] DISCHARGE SUMMARY NAME: KVNG RIVERO [facility] #: [id number] UNIT #: [id number] ROOM: 522 DOCTOR: KEE LUCIANO MD BIRTHDATE: [birth year] DOS: 11/20/2017 DISCHARGE DIAGNOSES: 1. The patient with liver transplant and elevation of bilirubin and alkaline phosphatase. 2. History of cholecystectomy. 3. End-stage kidney failure with the patient remaining on hemodialysis. 4. Advance adult failure to thrive and poor prognosis. 5. Urinary tract infection with resistant Escherichia coli, treated with IV Zosyn. 6. Type 2 diabetes mellitus. 7. Acute anemia, treated with blood transfusion. 8. History of liver transplant. The patient remains on Prograf. HOSPITAL COURSE: The patient was admitted with hypotension and the blood pressure dropped to 60-70 systolic at the dialysis center. The patient was evaluated in the Emergency Department and admitted to the ICU. The patient was feeling very weak and had not eaten well for several days apparently leading to hypotension. The patient was very weak according to her and not communicating much. The patient was found to be septic because of her leukocytosis, hypotension, urine infection and lung infiltrate compatible with pneumonia. The patient along with hypotension, the patient was admitted and treated and she was initially very confused, later on became somewhat better oriented and alert and wanted to go home. The patient wanted to continue hemodialysis. During her stay at the hospital, her bilirubin levels started rising and there was some elevation of alkaline phosphatase. Dr. Strauss, the director of sales marketing was consulted and he performed scans of the liver, which showed no acute obstruction. The patient has a history of liver transplant and remains on Prograf. Because of severe elevation of bilirubin and jaundice, I am trying to transfer her to a tertiary care facility. The patient with leukocytosis and hypotension has resolved. The patient was followed by grease buffer and tablet technician during her stay at the hospital. IMPRESSION: 1. Severe protein-calorie malnutrition and adult failure to thrive. The patient encouraged to eat. 2. Advance adult failure to thrive and poor long-term prognosis. Discussed with the patient and her . 3. Chronic kidney failure. The patient remains on hemodialysis. 4. Hypokalemia, resolved with extra potassium supplements. 5. Major depression, recurrent, moderate, is being treated with Cymbalta. 6. Type 2 diabetes mellitus. Blood sugars were followed and treated. The patient does also have history of diabetic gastroparesis. Overall, long-term prognosis remains poor. [place], [place] DISCHARGE [id number] #: [id number] ROOM: 522 DOCTOR: KEE LUCIANO MD BIRTHDATE: [birth year] KEE LUCIANO MD CM:DISCHYURIDIA 06 KEE LUCIANO MD 11/21/17 0014 interface
--- NOTE | ~2017-11-12 | CON ---
[place], [place] REPORT OF CONSULTATION NAME: KVNG RIVERO [facility] #: [id number] UNIT #: [id number] ROOM: 522 DOCTOR: ETHAN SLOAN MD BIRTHDATE: [birth year] DOS: 11/13/2017 PULMONARY CONSULTATION, EVALUATION AND MANAGEMENT CONSULTATION REQUESTED BY: Hospitalist. REASON FOR CONSULTATION: To assess the patient for questionable pneumonia. HISTORY OF PRESENT ILLNESS: A 57-year-old white female patient who has been known with end-stage renal failure, on hemodialysis, was admitted to the hospital previously and discharged to the nursing facility on 10/29/2017. The patient was treated in the nursing facility and receiving hemodialysis, previously was refusing hemodialysis. The patient was noted in dialysis clinic yesterday when she was noted with hypotension, blood pressure systolics recorded 60-70. The patient was sent to the hospital for further assessment. The patient was seen in the Emergency Room by the ER physician, Dr. Marie. The patient's diagnosis of sepsis was established related to urinary tract infection, possibility of pneumonia in the left lung. The patient admitted to the intensive care unit for further medical management. She has been treated with some intravenous fluid, did not require any vasopressors. The blood pressure was noted improved. She has been noted severe weakness and fatigue per was present at bedside. The patient not noted with much verbal communication at this time of assessment, but noted comfortable lying in the bed without any acute distress at this time of assessment. She does have some cough without any sputum expectoration. There was no shortness of breath reported. Her respiratory symptoms, chest pain, wheezing reported as per . REVIEW OF SYSTEMS: Cannot be effectively completed because of limited communication verbally. PAST MEDICAL HISTORY: Known with history of: 1. End-stage renal failure, on hemodialysis every Sunday, Sunday and Fridays. 2. Adult failure to thrive. 3. History of recurrent major depression. 4. Alcoholic liver cirrhosis, status post liver transplant. 5. Gastroesophageal reflux. 6. Type 2 diabetes mellitus. 7. Esophageal stricture, which was noted benign with dilatation previously. 8. Chronic intervertebral disc disease and lumbar spondylolisthesis. 9. Vitamin D deficiency. 10. Chronic primary insomnia. 11. Essential hypertension. 12. History of thrombocytopenia. 13. Nicotine dependence. 14. Diabetic gastroparesis. 15. Ketoacidosis. 16. History of past C. diff colitis as well. PAST SURGICAL HISTORY: Noted as: [place], [place] REPORT OF CONSULTATION NAME: KVNG RIVERO UNIT #: [id number] ROOM: 522 DOCTOR: ETHAN SLOAN MD BIRTHDATE: [birth year] 1. Liver transplant. 2. Hernia repair. 3. . 4. Cholecystectomy. 5. Dialysis catheter insertion. SOCIAL HISTORY: The patient is . She has 3 children. Currently, resident of nursing facility per . She has been noted with history of tobacco use since teenager, 1 pack of cigarettes per day, but stated by the that he had not given her cigarette this time to smoke for the past several weeks. There was no history of chronic alcohol dependence reported. FAMILY HISTORY: Her father with complication related to cancer 60+ years old. Mother at the age of 65 years from complications of multiple illnesses. CURRENT MEDICATIONS: Administered on this hospitalization were noted as use of vitamin B complex, lactobacillus, Megace, Cymbalta, Protonix, tacrolimus, Remeron, IV Rocephin, and other p.r.n. medications administration. DRUG ALLERGIES: No known drug allergies. PHYSICAL EXAMINATION: GENERAL: A 57-year-old female currently noted comfortable use of oxygen supplementation via nasal cannula and resting on the bed. VITAL SIGNS: Height, the patient recorded on current admission as 5 feet 4 inches, weight 120 pounds. Vital signs was reported as normal temperature since admission. Respiratory rate recorded as 16-18. Heart rate ranging between 102-98. Blood pressure on assessment in the Emergency Department was 112/67. The patient remained with a normal blood pressure afterwards. HEENT: Examination shows head was atraumatic. Eyes nonicterus. Dry oral mucosa. NECK: Supple. CARDIOVASCULAR: S1, S2 is audible. LUNGS: The patient was noted without any wheezing or crackles at the present time. Limited examination. ABDOMEN: Soft with mild obesity. Bowel sounds present. EXTREMITIES: Without any acute edema at this time visible. Visible skin lesions or rashes. CENTRAL NERVOUS SYSTEM: General weakness and unable to elicit any focal neurologic deficit with limited exam. MUSCULOSKELETAL: Without any acute deformities. LABORATORY DATA: PT and PTT that was done yesterday were noted as normal on admission. Lactic acid 1.9 on admission. CMP 625, glucose 222, BUN 14, creatinine 2.65. Potassium 3.4. CBC: WBC count yesterday 17.4, hemoglobin 6.9, hematocrit 22.9, platelet count 126,000. CBC this morning after 1 packed RBC blood transfusion, WBC count 15.1, hemoglobin 9, hematocrit 28.1, platelet counts were normal. BMP of 626, BUN 20, creatinine 2.99. Glucose 218. Urine culture: The patient was noted with heavy growth of gram-negative bacilli. [place], [place] REPORT OF CONSULTATION NAME: KVNG RIVERO UNIT #: [id number] ROOM: 522 DOCTOR: SHERRIE STREETER MD,ETHAN BIRTHDATE: [birth year] Pending identification sensitivities. Chest x-ray that was done yesterday, PA lateral was reviewed. The chest x-ray of 11/12/2017, PA lateral view shows clear right lung catheter in place with subclavian approach on the right side. Small infiltration was noted in the left lower lobe also visible lateral view. There was no evidence of pleural fluid. Small linear atelectasis noted in the right middle lobe as well. IMPRESSION: 1. The patient will be currently admitted to the hospital noted with hypotension with a possibility of acute sepsis with urinary tract infection was noted still oliguria. Evidence of acute pneumonia with atelectasis left lower lobe would be considered as well. She has not been noted any further episodes of the hypotension. 2. Leukocytosis secondary to above noted decreased. The patient with use of only Rocephin. 3. End-stage failure, on hemodialysis. 4. Adult failure to thrive as well by history. PLAN OF MANAGEMENT: Continue current antibiotic at this time without any changes. Doxycycline will be added to the treatment because of the dialysis, hemodialysis with increased risk of MRSA infection as well. The bronchodilators will be continued. Hemodialysis per order from [facility]. Repeat another chest x-ray in the morning to reassess the progression of the current infiltration. Other additional treatment changes to be made based on progression of the illness. The bronchodilator to help mobilize secretions. Order the sputum for Gram stain and culture. Monitor other culture results. Monitor final sensitivity results of the urine culture to make any further modification in antibiotics as well. Monitor CBC as well. Usual care. Other supportive therapy, plan of management and care plan to be made based on progression of the illness. ETHAN BALDERAS MD CM:CONSTR:REPORT OF CONSULTATION 1309 11/29/17 0850 interface
[~2017-11-12 13:33] MED LIST changes: +FLORASTOR250 MG PO; +LACTINEX 0.2 MG1 TAB PO; +LANTUS SOL100 UNIT/1 SC; +QUESTRAN LIGHT4 GM PO; +RENA-VITE1 TAB PO
[2017-11-12 15:26] LABS: ACT PARTIAL THROMBO TIME 25.1 SECONDS (20.8-31.5); INTERNATIONAL NORM RATIO 1.2 (2.0-3.5)
[2017-11-12 15:32] LABS: ALBUMIN 1.8 gm/dl (3.1-4.5); CREATININE 2.65 mg/dL (0.55-1.02); POTASSIUM 3.4 mmol/L (3.5-5.1); TOTAL PROTEIN 6.1 gm/dL (6.4-8.2)
[2017-11-12 15:33] LABS: TROPONIN I 0.038 ng/ml (<0.045)
[2017-11-12 15:38] LABS: BILIRUBIN 2+ (NEGATIVE); BLOOD 1+ (NEGATIVE); CLARITY CLOUDY (CLEAR); COLOR YELLOW (YELLOW); GLUCOSE TRACE (NEGATIVE); KETONE 1+ (NEGATIVE); LEUKO ESTERASE 1+ (NEGATIVE); NITRITE NEGATIVE (NEGATIVE); PH 5.5 (5.0-9.0)
[2017-11-12 15:41] LABS: THYROID STIM HORMONE (HS) 0.695 uIU/ml (0.358-4.75)
[2017-11-12 15:47] LABS: BASO % 0.1 % (0.0-1.0); EOS % 0.2 % (1.0-4.0); HEMATOCRIT 22.9 % (37.0-47.0); HEMOGLOBIN 6.9 g/dl (12.0-16.0); LYMPH # 1.5 10*3/uL (1.3-4.4); LYMPH % 8.4 % (27.0-41.0); MEAN CELL VOLUME 100.4 fl (81.0-99.0); MEAN CORPUSCULAR HGB 30.3 pg (27.0-31.0); MEAN CORPUSCULAR HGB CONC 30.1 g/dl (33.0-37.0); MEAN PLATELET VOLUME 9.7 fl (9.6-12.3); MONO % 5.6 % (3.0-9.0); NEUT # 14.8 10*3/uL (2.3-7.9); NEUT % 85.1 % (47.0-73.0); PLATELET COUNT AUTOMATED 126 10*3/uL (130-400); RED BLOOD COUNT 2.28 10*6/uL (4.10-5.10); RED CELL DISTRI WIDTH 15.6 % (0-14.5); WHITE BLOOD COUNT 17.4 10*3/uL (4.8-10.8)
[2017-11-12 15:50] LABS: BACTERIA 3+; EPITHELIAL CELLS 41-50
[2017-11-12] MEDS ORDERED: HUMULIN 70100 UNIT/2 SQ (19:05)
[2017-11-13] VITALS (7 sets, daily range): BP systolic 80–133; BP diastolic 50–87
[2017-11-13 06:00] LABS: BASO % 0.1 % (0.0-1.0); EOS % 0.2 % (1.0-4.0); HEMATOCRIT 28.1 % (37.0-47.0); LYMPH # 1.4 10*3/uL (1.3-4.4); LYMPH % 9.4 % (27.0-41.0); MEAN CORPUSCULAR HGB 30.2 pg (27.0-31.0); MONO # 1.1 10*3/uL (0.1-1.0); MONO % 7.4 % (3.0-9.0); NEUT # 12.4 10*3/uL (2.3-7.9); NEUT % 82.6 % (47.0-73.0); PLATELET COUNT AUTOMATED 115 10*3/uL (130-400); RED BLOOD COUNT 2.98 10*6/uL (4.10-5.10); RED CELL DISTRI WIDTH 17.4 % (0-14.5); WHITE BLOOD COUNT 15.1 10*3/uL (4.8-10.8)
[2017-11-13 06:15] LABS: MEAN CELL VOLUME 94.3 fl (81.0-99.0)
[2017-11-13 08:19] LABS: CREATININE 2.99 mg/dL (0.55-1.02); POTASSIUM 3.5 mmol/L (3.5-5.1)
[2017-11-14] VITALS: BP 106/66
[2017-11-14 04:00] VITALS: BP 118/71
[2017-11-14 04:19] LABS: BASO % 0.1 % (0.0-1.0); EOS % 0.3 % (1.0-4.0); LYMPH # 0.9 10*3/uL (1.3-4.4); LYMPH % 8.2 % (27.0-41.0); MEAN CELL VOLUME 95.9 fl (81.0-99.0); MEAN CORPUSCULAR HGB 29.5 pg (27.0-31.0); MEAN CORPUSCULAR HGB CONC 30.8 g/dl (33.0-37.0); MEAN PLATELET VOLUME 10.4 fl (9.6-12.3); MONO # 0.8 10*3/uL (0.1-1.0); MONO % 7.6 % (3.0-9.0); NEUT # 8.9 10*3/uL (2.3-7.9); NEUT % 83.3 % (47.0-73.0); RED CELL DISTRI WIDTH 17.9 % (0-14.5); WHITE BLOOD COUNT 10.7 10*3/uL (4.8-10.8)
[2017-11-14 05:30] LABS: HEMOGLOBIN 6.5 g/dl (12.0-16.0)
[2017-11-14 05:31] LABS: HEMATOCRIT 21.1 % (37.0-47.0); PLATELET COUNT AUTOMATED 80 10*3/uL (130-400)
[2017-11-14 08:00] VITALS: BP 110/62
[2017-11-14 12:00] VITALS: BP 115/63
[2017-11-14 16:00] VITALS: BP 121/80
[2017-11-14 20:00] VITALS: BP 125/80
[2017-11-15] VITALS: BP 118/67
[2017-11-15 06:55] LABS: BASO % 0.1 % (0.0-1.0); EOS # 0.1 10*3/uL (0.0-0.4); EOS % 0.4 % (1.0-4.0); LYMPH # 1.3 10*3/uL (1.3-4.4); LYMPH % 9.6 % (27.0-41.0); MEAN CORPUSCULAR HGB 30.8 pg (27.0-31.0); MEAN CORPUSCULAR HGB CONC 33.6 g/dl (33.0-37.0); MONO # 0.9 10*3/uL (0.1-1.0); MONO % 6.8 % (3.0-9.0); NEUT # 11.2 10*3/uL (2.3-7.9); NEUT % 82.5 % (47.0-73.0); PLATELET COUNT AUTOMATED 87 10*3/uL (130-400); RED BLOOD COUNT 4.35 10*6/uL (4.10-5.10); WHITE BLOOD COUNT 13.6 10*3/uL (4.8-10.8)
[2017-11-15 06:56] LABS: HEMATOCRIT 39.9 % (37.0-47.0); HEMOGLOBIN 13.4 g/dl (12.0-16.0); MEAN CELL VOLUME 91.7 fl (81.0-99.0)
[2017-11-15 08:00] VITALS: BP 132/86
[2017-11-15 12:00] VITALS: BP 118/76
[2017-11-15 16:00] VITALS: BP 133/75
[2017-11-15 20:00] VITALS: BP 139/79
[2017-11-16] VITALS: BP 142/81
[2017-11-16 06:44] LABS: BASO % 0.2 % (0.0-1.0); EOS # 0.1 10*3/uL (0.0-0.4); EOS % 0.5 % (1.0-4.0); HEMATOCRIT 38.7 % (37.0-47.0); HEMOGLOBIN 12.7 g/dl (12.0-16.0); LYMPH # 1.7 10*3/uL (1.3-4.4); LYMPH % 13.1 % (27.0-41.0); MEAN CELL VOLUME 92.6 fl (81.0-99.0); MEAN CORPUSCULAR HGB 30.4 pg (27.0-31.0); MEAN CORPUSCULAR HGB CONC 32.8 g/dl (33.0-37.0); MEAN PLATELET VOLUME 9.6 fl (9.6-12.3); MONO # 1.1 10*3/uL (0.1-1.0); MONO % 8.1 % (3.0-9.0); NEUT # 10.3 10*3/uL (2.3-7.9); NEUT % 77.6 % (47.0-73.0); PLATELET COUNT AUTOMATED 87 10*3/uL (130-400); RED BLOOD COUNT 4.18 10*6/uL (4.10-5.10); RED CELL DISTRI WIDTH 16.2 % (0-14.5); WHITE BLOOD COUNT 13.2 10*3/uL (4.8-10.8)
[2017-11-16 08:00] VITALS: BP 130/76
[2017-11-16 12:00] VITALS: BP 110/64
[2017-11-16 16:00] VITALS: BP 110/64; BP 137/79
[2017-11-16 20:00] VITALS: BP 102/57; BP 125/77
[2017-11-17] VITALS: BP 138/88
[2017-11-17 08:01] VITALS: BP 117/66
[2017-11-17 12:12] VITALS: BP 91/50
[2017-11-17 16:10] VITALS: BP 110/67
[2017-11-17 20:00] VITALS: BP 118/75
[2017-11-18] VITALS: BP 126/77
[2017-11-18 07:43] VITALS: BP 124/87
[2017-11-18 11:45] VITALS: BP 114/65
[2017-11-18 15:26] LABS: ALBUMIN 1.5 gm/dl (3.1-4.5); TOTAL PROTEIN 5.3 gm/dL (6.4-8.2)
[2017-11-18 15:59] VITALS: BP 151/97
[2017-11-18 20:00] VITALS: BP 114/73
[2017-11-19] VITALS: BP 120/77
[2017-11-19 06:43] LABS: BASO % 0.2 % (0.0-1.0); EOS # 0.1 10*3/uL (0.0-0.4); EOS % 0.9 % (1.0-4.0); HEMATOCRIT 34.2 % (37.0-47.0); LYMPH # 0.8 10*3/uL (1.3-4.4); MEAN CORPUSCULAR HGB 30.2 pg (27.0-31.0); MEAN CORPUSCULAR HGB CONC 32.2 g/dl (33.0-37.0); MEAN PLATELET VOLUME 10.4 fl (9.6-12.3); MONO # 0.4 10*3/uL (0.1-1.0); MONO % 7.6 % (3.0-9.0); NEUT # 4.4 10*3/uL (2.3-7.9); NEUT % 75.9 % (47.0-73.0); PLATELET COUNT AUTOMATED 51 10*3/uL (130-400); RED BLOOD COUNT 3.64 10*6/uL (4.10-5.10); RED CELL DISTRI WIDTH 15.1 % (0-14.5); WHITE BLOOD COUNT 5.8 10*3/uL (4.8-10.8)
[2017-11-19 07:14] LABS: ALBUMIN 1.5 gm/dl (3.1-4.5); CREATININE 3.97 mg/dL (0.55-1.02); POTASSIUM 3.4 mmol/L (3.5-5.1); TOTAL PROTEIN 5.1 gm/dL (6.4-8.2)
[2017-11-19 08:00] VITALS: BP 113/65
[2017-11-19 12:00] VITALS: BP 150/82
[2017-11-19 16:00] VITALS: BP 110/64
[2017-11-19 17:52] LABS: ACT PARTIAL THROMBO TIME 31.1 SECONDS (20.8-31.5); INTERNATIONAL NORM RATIO 1.3 (2.0-3.5)
[2017-11-19 20:00] VITALS: BP 102/57
[2017-11-20] VITALS: BP 118/72
[2017-11-20 06:53] LABS: ALBUMIN 1.6 gm/dl (3.1-4.5); BILIRUBIN, DIRECT 8.9 mg/dL (0.0-0.2)
[2017-11-20 06:58] LABS: TOTAL PROTEIN 5.7 gm/dL (6.4-8.2)
[2017-11-20 08:00] VITALS: BP 121/79
[2017-11-20 12:00] VITALS: BP 123/75
[2017-11-20 16:00] VITALS: BP 139/93
[2017-11-20 20:00] VITALS: BP 134/87
[2017-11-21] VITALS: BP 118/63
== END 2017-11-21 03:35 | disposition short-term general hospital (02) | DRG 871 ==
LOC: ED 13:33 → ICCU 17:38 → EDHOLD 17:38 → ICCU 17:38 → 5E 11-14 14:39
PROVIDERS: Internal Medicine; Internal Medicine Gastroenterology
PROC: 5A1D70Z Performance of Urinary Filtration, Intermittent, Less than 6 Hours Per Day (ICD-10-PCS; principal; 2017-11-12)
PROC: 30233N1 Transfusion of Nonautologous Red Blood Cells into Peripheral Vein, Percutaneous Approach (ICD-10-PCS; principal; 2017-11-12)
PROC: 5A1D70Z Performance of Urinary Filtration, Intermittent, Less than 6 Hours Per Day (ICD-10-PCS; 2017-11-14)
PROC: 5A1D70Z Performance of Urinary Filtration, Intermittent, Less than 6 Hours Per Day (ICD-10-PCS; 2017-11-16)
PROC: 5A1D70Z Performance of Urinary Filtration, Intermittent, Less than 6 Hours Per Day (ICD-10-PCS; 2017-11-19)
DX: A41.9 Sepsis, unspecified organism (principal); J18.9 Pneumonia, unspecified organism; E43 Unspecified severe protein-calorie malnutrition; G93.40 Encephalopathy, unspecified; I47.2 Ventricular tachycardia; F33.2 Major depressive disorder, recurrent severe without psychotic features; K31.84 Gastroparesis; E11.22 Type 2 diabetes mellitus with diabetic chronic kidney disease; E11.43 Type 2 diabetes mellitus with diabetic autonomic (poly)neuropathy; D69.6 Thrombocytopenia, unspecified; N18.6 End stage renal disease; I12.0 Hypertensive chronic kidney disease with stage 5 chronic kidney disease or end stage renal disease; N39.0 Urinary tract infection, site not specified; Z94.4 Liver transplant status; R17 Unspecified jaundice; Z66 Do not resuscitate; Z51.5 Encounter for palliative care; K21.9 Gastro-esophageal reflux disease without esophagitis; D63.1 Anemia in chronic kidney disease; F51.04 Psychophysiologic insomnia; M47.896 Other spondylosis, lumbar region; E11.65 Type 2 diabetes mellitus with hyperglycemia; B96.20 Unspecified Escherichia coli [E. coli] as the cause of diseases classified elsewhere; R62.7 Adult failure to thrive; E87.6 Hypokalemia; E55.9 Vitamin D deficiency, unspecified; F17.210 Nicotine dependence, cigarettes, uncomplicated; R31.9 Hematuria, unspecified; Z99.2 Dependence on renal dialysis; Z87.81 Personal history of (healed) traumatic fracture; Z90.49 Acquired absence of other specified parts of digestive tract; Z98.891 History of uterine scar from previous surgery; Z98.41 Cataract extraction status, right eye; Z98.42 Cataract extraction status, left eye; Z80.9 Family history of malignant neoplasm, unspecified; Z82.49 Family history of ischemic heart disease and other diseases of the circulatory system